=== PATIENT | female | born 1975 | race Caucasian/White ===

== ENCOUNTER 2024-02-08 07:33 | Outpatient (OUT) | payer BC, SELFPAY | END 2024-02-08 07:34 | disposition home or self-care (01) | LOC: SLEEP 07:33 | DX: G47.33 Obstructive sleep apnea (adult) (pediatric) (principal) | CPT/HCPCS: 95806 ==

== ENCOUNTER 2024-08-01 10:31 | Outpatient (OUT) | payer BC, SELFPAY ==
[2024-08-01 10:49] LABS: Basophils Absolute Auto 0.1 10^3/uL (0.0-0.1); Basophils Percent Auto 0.8 % (0.2-2.0); Eosinophils Absolute Auto 0.3 10^3/uL (0.0-0.7); Eosinophils Percent Auto 3.4 % (0.9-7.0); Hematocrit 42.8 % (36.0-48.0); Hemoglobin 14.5 g/dL (12.0-16.0); Immature Granulocytes Abs Auto 0.02 10^3/uL (0.00-0.03); Immature Granulocytes Pct Auto 0.3 % (0.0-0.5); Lymphocytes Percent Auto 37.1 % (20.5-60.0); Mean Corpuscular HGB Conc 33.9 g/dL (29.9-35.2); Mean Corpuscular Hemoglobin 31.7 pg (26.7-34.0); Mean Corpuscular Volume 93.7 fL (81.0-99.0); Mean Platelet Volume 9.5 fL (9.5-13.5); Monocytes Absolute Auto 0.8 10^3/uL (0.3-0.8); Monocytes Percent Auto 10.4 % (1.7-12.0); Neutrophils Absolute Auto 3.8 10^3/uL (1.4-6.5); Platelet Count 257 10^3/uL (150-450); Red Blood Count 4.57 10^6/uL (4.20-5.40); Red Cell Distribution Width 13.6 % (11.0-15.0)
[2024-08-01 11:17] LABS: Estimated Average Glucose 126 mg/dL
[2024-08-01 11:31] LABS: Alanine Aminotransferase 18 U/L (14-59); Albumin Globulin Ratio 1.2; Albumin Level 3.7 g/dL (3.4-5.0); Alkaline Phosphatase 79 U/L (46-116); Anion Gap 10.3; Aspartate Amino Transferase 15 U/L (15-37); BUN Creatinine Ratio 26.8; Bilirubin Total 0.4 mg/dL (0.2-1.0); Calcium 9.2 mg/dL (8.5-10.1); Carbon Dioxide 29.5 mmol/L (21.0-32.0); Chloride 105 mmol/L (98-107); Estimated GFR (African America >60 (>=60 mL/min/1.73m^2); Estimated GFR (Non-African Ame >60 (>=60 mL/min/1.73m^2); Globulin 3.1 g/dL; Glucose 72 mg/dL (74-106); Potassium 3.8 mmol/L (3.5-5.1); Sodium 141 mmol/L (136-145); Total Protein 6.8 g/dL (6.4-8.2)
== END 2024-08-01 10:32 | disposition home or self-care (01) ==
LOC: LAB 10:32
PROVIDERS: Visit Provider Obstetrics & Gynecology
DX: E74.39 Other disorders of intestinal carbohydrate absorption (principal); Z76.89 Persons encountering health services in other specified circumstances
CPT/HCPCS: 36415; 80053; 83036; 84443; 85025

== ENCOUNTER 2024-12-06 20:08 | Outpatient (REF) | payer BC, SELFPAY ==
--- OUTSIDE RECORDS SUMMARY | 2024-12-06 14:30 | XMS_ITS | Encounter Summary ---
Author Organization [facility] Address [address] [facility] [place] [address] Care Team Providers Care Pelt Grader Name Role Phone Chelly Garcia DO Primary Care Provider Unav ailable Reason for Visit * Reason Comments Well Women Visit Encounter Details Date Type Department Care Team (Late st Contact Info) Description 12/06/2024 2:30 PM EDT Office Visit [facility] [place] [facility] [address] [facility] [place] [phone] Desmond Galan DO [address] [facility] [place] [address] Well woman exam with routine gynecological exam; Encounter for screening mammogram for malignant neoplasm of breast; Encounter for weight management Social History Tobacco Use Types Packs/Day Years Used Date Smoking Tobacco: Never Assessed Comments Unknown Sex and Gender Information Value Date Recorded Sex Assigned at Not on file Legal Sex Female 6:59 PM EDT Gender Identity Not on file Sexual Orientation Not on file documented as of this encounter Progress Notes * Adina Cali LPN - 12/06/2024 2:30 PM EDT Reason for Appointment: Patient ID: Kerry Shepard is a 49 y.o. female who presents for Well Women Visit Patient presents today for Annual Exam. MEDICATIONS Current Outpatient Medications Medication Instructions famotidine (PEPCID) 40 mg, Oral, Daily losartan-hydroCHLOROthiazide (Hyzaar) 50-12.5 MG tablet 1 tablet, Oral, Daily omeprazole (PRILOSEC) 40 mg, Oral, Daily before breakfast ALLERGIES No Known Allergies PROBLEMS Active Ambulatory Problems Diagnosis Date Noted No Active Ambulatory Problems Resolved Ambulatory Problems Diagnosis Date Noted No Resolved Ambulatory Problems No Additional Past Medical History HISTORY PAST MEDICAL HISTORY SOCIAL HISTORY No past medical history on file. Social History Tobacco Use Smoking status: Not on file Smokeless tobacco: Not on file Substance Use Topics Alcohol use: Not on file Drug use: Not on file FAMILY HISTORY No family history on file. SURGICAL HISTORY No past surgical history on file. REVIEW OF SYSTEMS Review of Systems: Review of Systems Constitutional: Negative. HENT: Negative. Eyes: Negative. Respiratory: Negative. Cardiovascular: Negative. Gastrointestinal: Negative. Genitourinary: Negative. Musculoskeletal: Negative. Skin: Negative. Neurological: Negative. All other systems reviewed and are negative. Hematological: Negative. Endocrine: Negative. Allergic/Immunologic: Negative. OBJECTIVE Objective: Physical Exam Constitutional: Appearance: Normal appearance. She is well-developed. Genitourinary: Vulva normal. Breasts: Breasts are soft. Right: Normal. Left: Normal. Cardiovascular: Rate and Rhythm: Normal rate and regular rhythm. Pulmonary: Effort: Pulmonary effort is normal. Breath sounds: Normal breath sounds. Abdominal: General: Bowel sounds are normal. There is no distension. Palpations: Abdomen is soft. Tenderness: There is no abdominal tenderness. There is no guarding or rebound. Musculoskeletal: General: No swelling. Normal range of motion. Right lower leg: No edema. Left lower leg: No edema. Neurological: Mental Status: She is alert and oriented to person, place, and time. Skin: General: Skin is warm and dry. Psychiatric: Mood and Affect: Mood normal. Behavior: Behavior normal. Vitals and nursing note reviewed. Exam conducted with a light cleaner present. Vitals: Estimated body mass index is 40.69 kg/m?? as calculated from the following: Height as of 10/29/21: 5' 4.5 . Weight as of 08/01/24: 240 lb 12.8 oz. BP: No LMP recorded. ASSESSMENT & PLAN ICD-10-CM 1. Well woman exam with routine gynecological exam Z01.419 THIN PREP TIS PAP AND HR HPV DNA 2. Encounter for screening mammogram for malignant neoplasm of breast Z12.31 CANCELED: Bilateral screening mammogram CANCELED: Bilateral screening mammogram No orders of the defined types were placed in this encounter. Annual Wellness Exam: Patient presents today for routine annual exam. Patient states she has no current complaints. Patients vitals were reviewed and within normal limits. Growth and development is noted to be appropriate for age. Menstrual history is noted to be regular with no concerns reported. No mental health concerns was expressed. Pap Smear: Speculum was inserted into the vagina and pap was obtained without difficulty. HPV testing was performed per age guideline. Patient was advised that pap results could take anywhere from 7 to 10 days to receive and our office will reach out to the patient with those once we have them. Patient can also view results via [employer]. I reinforced importance of condom use for STI prevention. Patient declined cultures to be performed with today's visit. Breast Exam: Upon examination, clinical breast exam was noted to be normal and screening mammogram was ordered and given to patient to have obtained. Patient was counseled on breast self-awareness, including the importance of knowing what is normal for her own breasts and promptly reporting any changes such as new lumps, skin dimpling, nipple discharge, or pain. Screening mammogram was recommended annually. Discussed signs and symptoms of breast cancer and when to seek medical attention. Answered all patient questions. Patient presents today for initial Adipex prescription. The importance of keeping a food journal, proper nutrition/diet, and exercise regimen while taking Adipex has been discussed. Patient verbalized understanding and signed consents to initiate (Adipex) medication therapy. Patient was given a printed prescription signed by provider to take to their local pharmacy. Follow Up: Patient is to return to the office in 1 month for further evaluation to assess patient progress. Weight and blood pressure will need to be captured in order for patient to receive 2nd prescription. Follow Up: Patient is to return to our office in one year for annual exam unless needed otherwise. Documented by Adina Cali LPN on behalf of: Desmond Galan DO documented in this encounter Plan of Treatment Upcoming Encounters Date Type Department Care Team (Late st Contact Info) Description 01/03/2025 2:30 PM EDT Office Visit [facility] [place] [facility] [address] [place] [address] Courtney Osman PA [address] [place] [address] 12/13/2025 4:00 PM EDT Procedure Visit [facility] [address] [facility] [place] [phone] Desmond Galan DO [address] [place] [address] Scheduled Orders Name Type Priority Associated Diagnoses Orde r Schedule THIN PREP TIS PAP AND HR HPV DNA Pathology and Cytology Routine Well woman exam with routine gynecological exam Ordered: 12/06/2024 documented as of this encounter Visit Diagnoses Diagnosis Well woman exam with routine gynecological exam Routine gynecological examination Encounter for screening mammogram for malignant neoplasm of breast Encounter for weight management documented in this encounter Care Teams Pelt Grader Relationship Specialty Start Date End Date Chelly Garcia DO PCP - General Family Medicine 07/29/22 documented as of this encounter
--- OUTSIDE RECORDS SUMMARY | 2024-12-06 20:11 | XMS_ITS | Encounter Summary ---
Author Organization [facility] Address [address] [facility] [place] [address] Care Team Providers Care Family Life Counselor Name Role Phone Chelly Garcia DO Primary Care Provider Unav ailable Encounter Details Date Type Department Care Team (Late Contact Info) Description 11/28/2024 Orders Only [facility]I ABBOTT [address] [place] [address] [place] [address] Monica Ash LPN [address] [facility] [place], [place] [address] Social History Tobacco Use Types Packs/Day Years Used Date Smoking Tobacco: Never Assessed Comments Unknown Sex and Gender Information Value Date Recorded Sex Assigned at Not on file Legal Sex Female 6:59 PM EDT Gender Identity Not on file Sexual Orientation Not on file documented as of this encounter Plan of Treatment Upcoming Encounters Date Type Department Care Team (Late st Contact Info) Description 01/03/2025 2:30 PM EDT Office Visit [facility] ABBOTT [address] [place] [address] [place] [address] Courtney Osman PA [address] [facility] [address] [place], [place] [address] 12/13/2025 4:00 PM EDT Procedure Visit [facility] ABBOTT [address] [place] [address] [place] [address] Desmond Galan DO [address] [place] [address] Dr Ta [place], [facility]11 documented as of this encounter Procedures Procedure Name Priority Date/Time Associated Diagnosis Comments PAP SMEAR Routine 05/31/2020 12:00 AM EST documented in this encounter Results * Pap Smear (05/31/2020 12:00 AM EST) Swab Cervical swab / Unknown us Adama Nurse [facility] CYTOLOGY ORDERABLES Final Result EXTERNAL LAB documented in this encounter Visit Diagnoses Not on filedocumented in this encounter Care Teams Family Life Counselor Relationship Specialty Start Date End Date Chelly Garcia DO PCP - General Family Medicine 07/29/22 documented as of this encounter
--- OUTSIDE RECORDS SUMMARY | 2024-12-06 20:11 | XMS_ITS | Clinical Summary ---
Author Organization [facility] Address [address] [place] [address], [address] [place] [address] Care Team Providers Care Employee Adviser Name Role Phone JoseChelly Primary Care Provider [phone] Allergies No known active allergies Medications buPROPion (WELLBUTRIN SR) 150 MG extended release tablet take 1 tablet by mouth twice a day 1 2016 Active JULEBER 0.15-30 MG-MCG per tablet TAKE 1 TABLET BY MOUTH ONCE DAILY 0 04/19/2016 Active nicotine (NICODERM CQ) 21 MG/24HR 0 04/01/2016 Active Active Problems No known active problems Family History Medical History Relation Name Comments Cancer Father lung,breast,lym phoma Diabetes Mother Relation Name Status Comments Father Mother Alive Social History Tobacco Use Types Packs/Day Years Used Date Smoking Tobacco: Former Smokeless Tobacco: Never Alcohol Use Standard Drinks/Week Comments No 0 (1 standard drink = 0.6 oz pur e alcohol) Comments No Sex and Gender Information Value Date Recorded Sex Assigned at Not on file Legal Sex Female 2:55 PM EST Gender Identity Not on file Sexual Orientation Not on file Last Filed Vital Signs Vital Sign Reading Time Taken Comments Blood Pressure 126/84 05/06/2016 3:03 PM EST Pulse 91 05/06/2016 3:03 PM EST Temperature 37.2 C (99 F) 05/06/2016 3:03 PM EST Respiratory Rate 20 05/06/2016 3:03 PM EST Oxygen Saturation 96% 05/06/2016 3:03 PM EST Inhaled Oxygen Concentration - - Weight 91.6 kg (202 lb) 05/06/2016 3:03 PM EST Height 162.6 cm (5' 4 ) 05/06/2016 3:03 PM EST Body Mass Index 34.67 05/06/2016 3:03 PM EST Plan of Treatment Not on file Insurance ALL Care Teams Employee Adviser Relationship Specialty Start Date End Date Chelly Garcia DO PCP - General Family Medicine 05/06/16
--- OUTSIDE RECORDS SUMMARY | 2024-12-06 20:11 | XMS_ITS | Encounter Summary ---
Author Organization [facility] Address [address] [facility] [place] [address] Care Team Providers Care Animal Cruelty Investigation Supervisor Name Role Phone Jose Chellyblane Greer DO Primary Care Provider Unav ailable Encounter Details Date Type Department Care Team (Late Contact Info) Description 08/12/2024 Abstract [facility]I ABBOTT [address] [place] [address] [place] [address] Desmond Galan DO [address] [place] [address] Dr Ta [place], [facility]11 Social History Tobacco Use Types Packs/Day Years Used Date Smoking Tobacco: Never Assessed Comments Unknown Sex and Gender Information Value Date Recorded Sex Assigned at Not on file Legal Sex Female 6:59 PM EDT Gender Identity Not on file Sexual Orientation Not on file documented as of this encounter Plan of Treatment Upcoming Encounters Date Type Department Care Team (Late Contact Info) Description 01/03/2025 2:30 PM EDT Office Visit YESI ABBOTT [address] [place], [place] [address] [address] Courtney Osman PA [address] [place], [place] [address] 12/13/2025 4:00 PM EDT Procedure Visit YESI ABBOTT [address] [place], [place] [address] [address] Desmond Galan, [facility] [place], [facility]11 (work) documented as of this encounter Visit Diagnoses Not on filedocumented in this encounter Care Teams Animal Cruelty Investigation Supervisor Relationship Specialty Start Date End Date Chelly Garcia DO PCP - General Family Medicine 07/29/22 documented as of this encounter
--- OUTSIDE RECORDS SUMMARY | 2024-12-06 20:11 | XMS_ITS | Encounter Summary ---
Author Organization [facility] Address [address] [facility] [place] [address] Care Team Providers Care Third Cook Name Role Phone Chelly Garcia DO Primary Care Provider Unav ailable Reason for Visit * Reason Comments Med Refill Encounter Details Date Type Department Care Team (Late Contact Info) Description 05/13/2023 Refill [facility] [address] [place] [phone] Chelly Garcia, DO Encounter for surveillance of contraceptive pills Social History Tobacco Use Types Packs/Day Years Used Date Smoking Tobacco: Never Assessed Comments Unknown Sex and Gender Information Value Date Recorded Sex Assigned at Not on file Legal Sex Female 6:59 PM EDT Gender Identity Not on file Sexual Orientation Not on file documented as of this encounter Miscellaneous Notes * Telephone Encounter - Luis Armstrong MA - 05/13/2023 10:12 AM EST Pt needs apt. Not seen since 03/2022. Lmtcb for apt documented in this encounter Plan of Treatment Upcoming Encounters Date Type Department Care Team (Late Contact Info) Description 01/03/2025 2:30 PM EDT Office Visit [facility]I ABBOTT [address] [facility] [place] [phone] Courtney Osman PA [address] [facility] [place] [address] 12/13/2025 4:00 PM EDT Procedure Visit [facility]I [facility]OOKS[facility] [address] [place] [address] Desmond Galan DO [address] [place] [address] documented as of this encounter Visit Diagnoses Diagnosis Encounter for surveillance of contraceptive pills documented in this encounter Care Teams Third Cook Relationship Specialty Start Date End Date Chelly Garcia DO PCP - General Family Medicine 07/29/22 documented as of this encounter
--- OUTSIDE RECORDS SUMMARY | 2024-12-06 20:11 | XMS_ITS | Clinical Summary ---
Author Organization [facility] Address [address] [email or web address] [place] [address] Care Team Providers Care Planetarium Sky Show Technician Name Role Phone Chelly Garcia DO Primary Care Provider Unav ailable Allergies No known active allergies Medications losartan-hydroC HLOROthiazide (Hyzaar) 50-12.5 MG tablet Take 1 tablet by mouth Daily Active famotidine (Pepcid) 40 MG tablet Take 40 mg by mouth Daily Active omeprazole (PriLOSEC) [address] capsule Take 40 mg by mouth in the morning. Take before meals. Active phentermine (Adipex-P) 37.5 MG tabletIndicatio ns:Encounter for weight management Take 1 tablet (37.5 mg) by mouth in the morning. Take before meals. 30 tablet 5 01/06/20 25 Active semaglutide (Ozempic) 2 MG/1.5ML solution pen-injectorInd ications:Glucos e intolerance,Enc ounter for weight management FIRST MONTH inject 0.25 mg under the skin once weekly; then SECOND MONTH inject 0.5 mg under the skin 1 (one) time per week for 4 doses. 1.5 mL 1 5 12/07/19 25 Discontinued Encounters Date Type Department Care Team Description 12/06/2024 2:30 [place] [phone] Desmond Galan, DO Well woman exam with routine gynecological exam; Encounter for screening mammogram for malignant neoplasm of breast; Encounter for weight management 12/06/2024 [place] [address] Desmond Galan, DO 12/06/2024 Travel 12/06/2024 Bamboo flowsheet [facility] ABBOTT [address] [place] [address] [place] [address] Desmond Galan, DO 11/28/2024 Orders Only [facility] [place] [address] Monica Ash LPN 09/08/2024 Telephone [facility] [address] [place] [address] [place] [address] Samara Nash LPN from Last 3 Months Social History Tobacco Use Types Packs/Day Years Used Date Smoking Tobacco: Never Assessed Comments Unknown Sex and Gender Information Value Date Recorded Sex Assigned at Not on file Legal Sex Female 6:59 PM EDT Gender Identity Not on file Sexual Orientation Not on file Last Filed Vital Signs Vital Sign Reading Time Taken Comments Blood Pressure 118/74 08/01/2024 9:32 AM EDT Pulse - - Temperature - - Respiratory Rate - - Oxygen Saturation - - Inhaled Oxygen Concentration - - Weight 109 kg (240 lb 12.8 oz) 08/01/2024 9:32 A M EDT Height 163.8 cm (5' 4.5 ) 10/29/2021 12:00 PM ED T Body Mass Index 40.69 10/29/2021 12:00 PM EDT Plan of Treatment Upcoming Encounters Date Type Department Care Team (Late st Contact Info) Description 01/03/2025 2:30 PM EDT Office Visit [facility] ABBOTT [address] [place] [address] [place] [address] Courtney Osman PA [address] [facility] [address] [place], [place] [address] 12/13/2025 4:00 PM EDT Procedure Visit [facility] [place] [address] Desmond Galan DO [address] [place] [address] Dr [place] [address] Insurance [facility] Care Teams Planetarium Sky Show Technician Relationship Specialty Start Date End Date Chelly Garcia DO PCP - General Family Medicine 07/29/22
--- OUTSIDE RECORDS SUMMARY | 2024-12-06 20:12 | XMS_ITS | Encounter Summary ---
Author Organization [facility] Address [address] [facility] [place] [address] Care Team Providers Care Sausage Linker Name Role Phone Jose Chellyblane Greer DO Primary Care Provider Unav ailable Encounter Details Date Type Department Care Team (Late Contact Info) Description 12/06/2024 Bamboo flowsheet YESI ABBOTT [address] [place] [address] [place] [address] Desmond Galan DO [address] [place] [address] Dr Ta [place], [facility]11 Social History Tobacco Use Types Packs/Day [...] 2:30 PM EDT Office Visit YESI ABBOTT [address] [place] [address] [place] [address] Courtney Osman PA [address] [place], [place] [address], [place] [address] 12/13/2025 4:00 PM EDT Procedure Visit YESI ABBOTT [address] [place], [place] [address] [address] Desmond Galan DO [address] [place], [facility]11 documented as of this encounter Visit Diagnoses Not on filedocumented in this encounter Care Teams Sausage Linker Relationship Specialty Start Date End Date Chelly Garcia DO PCP - General Family Medicine 07/29/22 documented as of this encounter
--- OUTSIDE RECORDS SUMMARY | 2024-12-06 20:12 | XMS_ITS | Encounter Summary ---
Author Organization [facility] Address [address] [facility] [place] [address] Care Team Providers Care Sanitary Plumber Name Role Phone Chelly Garcia DO Primary Care Provider Unav ailable Encounter Details Date Type Department Care Team (Latest Contact Info) Description 12/06/2024 Travel Social History Tobacco Use Types Packs/Day Years [...] PM EDT Office Visit YESI ABBOTT [address] [place] [phone] Courtney Osman PA [address] [facility] [address] [place], [place] [address] 12/13/2025 4:00 PM EDT Procedure Visit YESI ABBOTT [address] [place] [address] Desmond Galan DO [address] [facility] [address] [place], [facility]11 documented as of this encounter Visit Diagnoses Not on filedocumented in this encounter Care Teams Sanitary Plumber Relationship Specialty Start Date End Date Chelly Garcia DO PCP - General Family Medicine 07/29/22 documented as of this encounter
--- OUTSIDE RECORDS SUMMARY | 2024-12-06 20:12 | XMS_ITS | Encounter Summary ---
Author Organization [facility] Address [address] [facility] [place] [address] Care Team Providers Care Expeller Worker Name Role Phone Jose Chellyblane Greer DO Primary Care Provider Unav ailable Encounter Details Date Type Department Care Team (Late Contact Info) Description 12/06/2024 Abstract YESI ABBOTT [address] [place] [address] [place] [address] Desmond Galan DO [address] [place] [address] Dr Ta [place], [facility]11 Social History Tobacco Use Types Packs/Day Years [...] 2:30 PM EDT Office Visit YESI ABBOTT [address] [place], [place] [address] [address] Courntey Osman PA [address] [place], [place] [address] 12/13/2025 4:00 PM EDT Procedure Visit YESI ABBOTT [address] [place], [place] [address] [address] Desmond Galan, [address] [place], [facility]11 (work) documented as of this encounter Visit Diagnoses Not on filedocumented in this encounter Care Teams Expeller Worker Relationship Specialty Start Date End Date Chelly Garcia DO PCP - General Family Medicine 07/29/22 documented as of this encounter
--- OUTSIDE RECORDS SUMMARY | 2024-12-06 20:16 | XMS_ITS | CCD ---
Author Organization [facility] Care Team Providers Care Interlocking And Signal Mechanic Name Role Phone GUZMANDARRIN Unavailable Unavailable ALLSOP, CHELLY D Unavailable Unavailable Allsop, Chelly Unavailable Unavailable Asbridge, Yasmin Unavailable Unavailable Asbridge, Yasmin Unavailable Unavailable Allsop, Chelly D Unavailable [phone] MD Chelly Garcia Primary Care Provider MD Faisal Barry Attending Provider [phone] Lb, Rashi Unavailable REFERRAL, SELF Admitting Unavailable REFERRAL, SELF Attending Unavailable REFERRAL, SELF Referring Unavailable LB, RASHI Primary Care Unavailable LB, RASHI Consulting Unavailable LB, RASHI Admitting Unavailable LB, RASHI Primary Care Unavailable LB, RASHI Attending Unavailable Lb DO, Rashi N Primary Care Provider [phone] Lb DO, Rashi N Attending Provider Allsop Chelly LOVE Primary Care Provider Unav ailable QUINN GALAN Attending Unavailable Lb DO, Rashi N Primary Care Provider [phone] Lb DO, Rashi N Attending Provider [phone] Lb DO, Rashi N Primary Care Provider [phone] Lb DO, Rashi N Attending Provider [phone] Lb, Rashi N Attending Unavailable Lb, Rashi N Primary Care Unavailable Lb, Rashi N Admitting Unavailable NONE, XXXX Referring Unavailable LB, RASHI Primary Care Unavailable Narciso Coe Attending Unavailable LB, RASHI Attending Unavailable LB, RASHI Primary Care Unavailable LB, RASHI Admitting Unavailable Allergies Allergy Classification Reported Allergen(s) Allergy Type Date of Onset Reaction(s) Facility (1 source) No Known Medication Allergies; Translations: [No Known Medication Allergies] Propensity to adverse reactions to drug (disorder) [facility] Repository (7 sources) Non-steroidal anti-inflammato ry agent Drug allergy [facility] [employer] Other Medications Current Medications Medication Drug Class(es) Dates Sig (Normalized) Sig (Original) famotidine 20 mg oral tablet (20 sources) Histamine-2 Receptor Antagonist Start: 07-01-2023 End: 10-10-2024 take 1 tablet by mouth once daily Famotidine (Pepcid) 20 mg tablet Active 20 MG PO Daily October 10, 2024 4:23pm Complies with drug therapy Start: 10-20-2016 take 1 tablet by steven th twice daily famotidine (PEPCID) 20 MG tablet Indications: Idiopathic urticaria Take 1 (one) tablet (20 mg total) by mouth 2 (two) times a day. 60 tablet 3 10/20/2016 Active take 1 tablet by steven th once daily famotidine (Pepcid) 40 MG tablet Take 40 mg by mouth Daily Active hydroCHLOROthiazide 12.5 mg / lisinopril 20 mg oral tablet (1 source) Thiazide Diuretic, Angiotensin Converting Enzyme Inhibitor take 1 tablet by mouth every twenty-four hours Lisinopril-hydroCHLOROthiazide 20-12.5 MG 1 tablet Orally Once a day Active hydrOXYzine hydrochloride 25 mg oral tablet (2 sources) Antihistamine St ar t: 17 En d: 17 take 1 tablet by mouth at bedtime hydrOXYzine (ATARAX) 25 MG tablet Indications: Idiopathic urticaria Take 1 (one) tablet (25 mg total) by mouth at bedtime. 30 tablet 3 01/05/2017 Active Juleber 0.15 Mg-0.03 Mg Tablet (1 source) St ar t: 17 JULEBER 0.15-0.03 mg per tab let loratadine 10 mg oral tablet (1 source) St ar t: 17 take 1 tablet by mouth once daily loratadine (ALLERGY RELIEF, LORATADINE,) 10 mg tablet Indications: Idiopathic urticaria Take 1 (one) tablet (10 mg total) by mouth daily. 30 tablet 3 10/20/2016 Active phentermine hydrochloride 37.5 mg oral tablet (2 sources) Sympathomimetic Amine Anorectic St ar t: En d: take 1 tablet by mouth before mealtime phentermine (Adipex-P) 37.5 MG tablet Indications: Encounter for weight management Take 1 tablet (37.5 mg) by mouth in the morning. Take before meals. 30 tablet 12/06/2024 01/05/2025 Active Completed/Discontinued Medications Medication Drug Class(es) Dates Sig (Normalized) Sig (Original) Desogestrel-Ethiny l Estradiol (19 sources) Progestin, Estrogen Start: 07-01-2023 End: 07-01-2023 Desogestrel-Ethinyl Estradiol (Enskyce) 0.15-0.03 mg tablet Discontinued 1 TAB PO Daily June 30, 2023 11:00pm July 01, 2023 12:44pm FreeTextSi tablet Orally Once a day; Note: Source Status: Taking; Provider: Lb Trujillo ( ) Start: 07-01-2023 End: 07-01-2023 Desogestrel-Ethinyl Estradio l (Enskyce) 0.15-0.03 mg tablet Discontinued 1 TAB PO Daily July 01, 2023 12:00am July 01, 2023 1:44pm FreeTextSi tablet Orally Once a day; Note: Source Status: Taking; Provider: Lb Trujillo ( ) Start: 02-26-2023 End: 08-01-2024 desogestrel-ethinyl estradio l (Enskyce) 0.15-30 MG-MCG tablet Indications: Encounter for surveillance of contraceptive pills take 1 tablet by mouth once daily 28 tablet 2 02/26/2023 08/01/2024 Discontinued (Other) take 1 tablet by steven th every twenty-four hours Enskyce 0.15-30 MG-MCG 1 tablet Orally Once a day Active fexofenadine hydrochloride 180 mg oral tablet (17 sources) Histamine-1 Receptor Antagonist Start: 07-01-2023 End: 10-10-2024 take 1 tablet by mouth once daily Fexofenadine 180 mg tablet Discontinued 180 MG PO Daily September 17, 2023 3:26pm October 10, 2024 3:58pm hydroCHLOROthiazide 12.5 mg / losartan potassium 50 mg oral tablet (20 sources) Thiazide Diuretic, Angiotensin 2 Receptor Nerissa Start: 07-01-2023 End: 08-04-2024 take 1 tablet by mouth once daily Losartan-Hydroch lorothiazide 50-12.5 mg tablet Discontinued 1 TAB PO Daily September 17, 2023 3:25pm August 04, 2024 2:46pm lidocaine 0.05 mg/mg medicated patch (4 sources) Antiarrhythmic, Amide Local Anesthetic Start: 06-27-2024 End: 10-10-2024 apply 1 dose topically once daily Lidocaine 5 % adhesive patch,medicated Discontinued 1 PATCH TOPICAL Daily June 27, 2024 12:00am October 10, 2024 3:58pm leave on most painful area for up to 12 hrs meloxicam 15 mg oral tablet (11 sources) Nonsteroidal Anti-inflammatory Drug Start: 04-21-2024 End: 08-04-2024 take 1 tablet by mouth once daily Meloxicam 15 mg tablet Discontinued 15 MG PO Daily June 27, 2024 12:00am August 04, 2024 2:41pm methylPREDNISolone acetate 80 mg/ml injectable suspension (7 sources) Corticosteroid Start: 08-25-2022 DEPO-Medrol Aug, 80 mg omeprazole 40 mg delayed release oral capsule (20 sources) Proton Pump Inhibitor Start: 09-17-2023 End: 08-25-2024 take 1 capsule by mouth once daily Omeprazole 40 mg capsule,delayed release(DR/EC) Discontinued 40 MG PO Daily March 01, 2024 4:11pm August 25, 2024 9:51am pantoprazole 20 mg delayed release oral tablet (9 sources) Proton Pump Inhibitor Start: 07-01-2023 End: 07-01-2023 take 1 tablet by mouth twice daily Pantoprazole 20 mg tablet,delayed release (DR/EC) Discontinued 20 MG PO Twice daily July 01, 2023 12:00am July 01, 2023 1:43pm FreeTextSi tablet Orally bid; Note: Source Status: Taking; Provider: GI predniSONE 20 mg oral tablet (6 sources) Start: 04-25-2024 End: 06-03-2024 take 2 tablets by mouth once daily Prednisone 20 mg tablet Discontinued 40 MG PO Daily 12 April 25, 2024 1:00am June 03, 2024 10:01am 0.25 mg, 0.5 mg dose 1.5 ml semaglutide 1.34 mg/ml pen injector (6 sources) Start: 08-26-2024 End: 12-06-2024 semaglutide (Ozempic) 2 MG/1.5ML solution pen-injector Indications: Glucose intolerance , Encounter for weight management FIRST MONTH inject 0.25 mg under the skin once weekly; then SECOND MONTH inject 0.5 mg under the skin 1 (one) time per week for 4 doses. 1.5 mL 1 08/26/2024 12/06/2024 Discontinued Start: 08-01-2024 semaglutide (O zempic) 2 MG/1.5ML solution pen-injector Indications: Glucose intolerance FIRST MONTH inject 0.25 mg under the skin once weekly; then SECOND MONTH inject 0.5 mg under the skin 1 (one) time per week for 4 doses. 1 each 1 08/01/2024 Active sucralfate 1000 mg oral tablet (8 sources) Aluminum Complex Start: 09-15-2023 End: 09-17-2023 take 2 tablets by mouth four times daily Sucralfate (Carafate) 1 gram tablet Discontinued PO September 15, 2023 12:00am September 17, 2023 3:07pm FreeTextSi tablet on an empty stomach Orally qid; Note: Source Status: Taking; Provider: GI Problems Active Problems Problem Classification Problem Date Documented Da te Episodic/Chronic Administrative/social admission (4 sources) Patient encounter status; Translations: [Persons encountering health services in other specified circumstances] 08-01-2024 Episodic Diabetes mellitus without complication (6 sources) Prediabetes; Translations: [Prediabetes] 08-04-2024 Episodic Esophageal disorders (9 sources) Gastroesophageal reflux disease; Translations: [Gastro-esophageal reflux disease without esophagitis] 09-17-2023 Chronic Essential hypertension (16 sources) Essential hypertension; Translations: [Essential (primary) hypertension] Chronic Osteoarthritis (13 sources) Osteoarthritis of knee; Translations: [Osteoarthritis of knee, unspecified] 07-01-2023 Chronic Other and unspecified benign neoplasm (4 sources) History of polyp of colon; Translations: [Personal history of colonic polyps] Episodic Other and unspecified benign neoplasm (1 source) Personal history of colonic polyps Episodic Other connective tissue disease (1 source) Anterior tibial syndrome, unspecified leg; Translations: [Tibialis tendinitis] 07-01-2023 Episodic Other connective tissue disease (1 source) Anterior tibial syndrome, left leg; Translations: [Tibialis tendinitis] 07-01-2023 Episodic Other connective tissue disease (2 sources) Calcaneal spur, unspecified foot; Translations: [Calcaneal spur] 06-27-2024 Episodic Other nervous system disorders (3 sources) Paresthesia of hand ; Translations: [Paresthesia of skin] Episodic Other nervous system disorders (1 source) Paresthesia of skin Episodic Other non-traumatic joint disorders (1 source) Pain in unspecified knee; Translations: [Knee pain] Episodic Other non-traumatic joint disorders (1 source) Pain in left knee Episodic Other nutritional; endocrine; and metabolic disorders (4 sources) Disorder of carbohydrate metabolism; Translations: [Other disorders of intestinal carbohydrate absorption] 08-01-2024 Chronic Other nutritional; endocrine; and metabolic disorders (1 source) Liposynovitis prepatellaris; Translations: [Other specified metabolic disorders] 10-10-2024 Chronic Other screening for suspected conditions (not mental disorders or infectious disease) (5 sources) Encounter for screening for cardiovascular disorders; Translations: [Encounter for screening for malignant neoplasm of colon] Episodic Sprains and strains (1 source) Strain of muscle(s) and tendon(s) of peroneal muscle group at lower leg level, left leg, initial encounter Episodic Past or Other Problems Problem Classification Problem Date Documented Da te Episodic/Chronic Allergic reactions (3 sources) Idiopathic urticaria; Translations: [Idiopathic urticaria] Onset: 06-16-2016 06-16-2016 Episodic Other connective tissue disease (14 sources) Other specified disorders of tendon, right ankle and foot; Translations: [Achilles bursitis or tendinitis] Onset: 06-30-2024 04-21-2024 Episodic Unclassified (1 source) Well adult; Translations: [Full-term infant] 09-17-2023 Results Test Name Value Interpretation Reference Range Facility Sleep Office/Clinic Noteon 0 11-23-2024 Sleep Office/Clinic Note Sleep Office/Clinic Note History of Present Illness Here to establish care for underlying obstructive sleep apnea. The patient reports that she was diagnosed with obstructive sleep apnea about a year ago at [facility]. Apparently she was started on CPAP after that and a pressure of 17 cm via a hybrid fullface mask. She reports that she feels that the pressure goes up too high where she has significant GI symptoms with bloating and gas in the morning. Her pressures were decreased to 13 cm, however she continued to have similar issues. She reports that her sleep continues to be disrupted because of the high pressures and the intolerance to her CPAP with GI side effects. Her weight has increased about 10 pounds since she has her sleep study. No reported snoring while she is on the machine by her daughter, however she does sleep alone normally. Review of Systems Constitutional: no fever, no chills, no sweats, no weakness Skin: no Jaundice, no rash, no lesions, no petechiae ENT: no ear pain, no sore throat, no congestion, no hoarseness Respiratory: Denies shortness of breath, cough or wheezing Cardiovascular: no chest pain, no palpitations, no edema Gastrointestinal: no nausea, no vomiting, no diarrhea, no GI bleeding Genitourinary: no dysuria, no hematuria, no discharge, no pain Musculoskeletal: no back pain, no trauma Neurologic: no headache, no dizziness, no numbness, no weakness Psychiatric: no irritability, no mood swings/depression. Heme/Lymph: no bleeding tendency, no bruising tendency, no petechiae, no swollen nodes Allergy/Immunologic: no seasonal allergies, no food allergies, no recurrent infections, no impaired immunity Additional ROS info: Except as noted in the above Review of Systems and in the History of Present Illness all other systems have been reviewed and are negative or noncontributory. Physical Exam Vitals & Measurements HR: 91(Peripheral) BP: 130/82 SpO2: 97% HT: 162 cm WT: 112 kg BMI: 42.68 General: Awake, alert, in no acute distress Skin: warm, dry Head: no trauma, normocephalic. Prolonged soft palate Neck: Trachea midline, no adenopathy, no tenderness Eye: normal conjunctiva, sclera clear ENMT: TM's clear, oral mucosa moist, no pharyngeal erythema or exudate Cardiovascular: regular rate and rhythm, normal peripheral perfusion Respiratory: Good breath sounds to both lung garcia without wheezing or crackles. Gastrointestinal: soft, non distended, no tenderness, no guarding. Back: No tenderness, Normal ROM, Normal alignment. Extremities: no deformity, no trauma Neurological: oriented x 4, LOC appropriate for age, CN II-XII intact, motor strength equal & normal bilaterally, sensation equal & normal bilaterally, speech normal Psychiatric: cooperative, affect appropriate for age, normal judgement, normal psychiatric thoughts. Assessment/Plan 1. YEFRI (obstructive sleep apnea) (G47.33: Obstructive sleep apnea (adult) (pediatric)) With obstructive sleep apnea diagnosed at [facility] approximately a year ago. They have requested her sleep study to review. I have reviewed the patient's CPAP download data from October 23, 2024 till November 21, 2024 with the patient today. She has fair compliance with her CPAP at a pressure of 13 cm, however her AHI is somewhat elevated at 7.4/hour and mostly obstructive in nature. She has significant GI side effects from this higher pressure despite suboptimal therapy. Given the above I will decrease her pressure to 11 cm to see if this is better tolerated and reevaluate treatment plan in the next 6 to 8 weeks. If she continues to feel that her pressure is high we will consider decreasing it further to 9 cm. Will also consider switching to an auto titrating mode on her next visit as well. Follow-up With When Contact Information Carolin ESPINAL, Narciso Soto, PUL, JARED Within [address] [place] [address] [facility] [place] [address]- Additional Instructions: Problem List/Past Medical History Ongoing BMI 35.0-35.9,adult Chronic GERD Encounter for screening colonoscopy Obesity due to excess calories YEFRI (obstructive sleep apnea) Smoker Historical No qualifying data Procedure/Surgical History Esophagogastroduodenoscopy (05/21/2023), Colonoscopy (02/06/2023), Esophagogastroduodenoscopy (02/06/2023), Tubal ligation. Medications Apri oral tablet, 1 tab(s), Oral, As Directed Benadryl 25 mg Cap, 50 mg= 2 cap(s), Oral, TID Carafate 1 gram Tab, 2 gm= 2 tab(s), Oral, QID famotidine 20 mg Tab fexofenadine 180 mg Tab hydrochlorothiazide-losarta n 12.5 mg-50 mg Tab [place] 325 mg-5 mg oral tablet, 1 tab(s), Oral, q4hr, PRN Pantoprazole [address] Tab, 20 mg= 1 tab(s), Oral, BID tizanidine 4 mg oral capsule, 4 mg= 1 cap(s), Oral, TID Vistaril 25 mg Cap, 1-2 cap(s), Oral, QID, PRN Vistaril 25 mg Tab, 25 mg, Oral, QID Allergies No Known Allergies Social History Alcohol - Denies Alcohol Use, 05/29/2016 Never. (more content not included)... Normal [facility] Comment on above: Result Comment: Elec tronically Signed By: Carolin ESPINAL, Narciso Soto\.br\Date and Time Signed: 11/23/24 10:44 EDT ALL CBC WITH AUTO DIFFon BASOPHILS ABSOLUTE AUTO 0.1 [facility] Basophils/100 WBC (Bld) 0.8 % 0.2 - 2.0 % [facility] Eosinophils/100 WBC (Bld) 3.4 % 0.9 - 7.0 % [facility] Erythrocyte distribution width (RBC) [Ratio] 13.6 % 11.0 - 15.0 % [facility] Hematocrit (Bld) [Volume fraction] 42.8 % 36.0 - 48.0 % [facility] Hemoglobin (Bld) [Mass/Vol] 14.5 g/dL 12.0 - 16.0 g/dL [facility] IMMATURE GRANULOCYTES ABS AUTO 0.02 [facility] Immature granulocytes/100 WBC (Bld) 0.3 % 0.0 - 0.5 % [facility] LYMPHOCYTES ABSOLUTE AUTO 3 [facility] Lymphocytes/100 WBC (Bld) 37.1 % 20.5 - 60.0 % [facility] MCH (RBC) [Entitic mass] 31.7 pg 26.7 - 34.0 pg [facility] MCHC (RBC) [Mass/Vol] 33.9 g/dL 29.9 - 35.2 g/dL [facility] MCV (RBC) [Entitic vol] 93.7 fL 81.0 - 99.0 fL [facility] MONOCYTES ABSOLUTE AUTO 0.8 [facility] Monocytes/100 WBC (Bld) 10.4 % 1.7 - 12.0 % [facility] NEUTROPHILS ABSOLUTE AUTO 3.8 [facility] Neutrophils/100 WBC (Bld) 48 % 43.0 - 75.0 % [facility] Platelet mean volume (Bld) [Entitic vol] 9.5 fL 9.5 - 13.5 fL [facility] EO # 0.3 [facility] PLT 257 [facility] RBC 4.57 [facility] WBC 8 [facility] Basophils Auto (Bld) [#/Vol] on 05-23-2024 Basophils (Bld) [#/Vol] Automated basophil count 0.0-2.0 [facility] Basophils/100 WBC Auto (Bld) on 05-23-2024 Basophils/100 WBC (Bld) Automated basophil % 0.0-0.[address] [facility] CBC w/ Auto Diffon Basophils/100 WBC (Bld) 0.8 % Normal 0.0-2.0 [facility] Comment on above: Performed By: #### 2 [id number] #### [facility] [address] [place] [address] Basophils/Leukocytes Auto (Bld) [Pure # fraction] 0.1 E9/L Normal 0.0-0.2 [facility] Comment on above: Performed By: #### 2 [id number] #### [facility] [address] [place] [address] Eosinophils (Bld) [#/Vol] 0.1 E9/L Normal 0.0-0.5 [facility] Comment on above: Performed By: #### 2 [id number] #### [facility] [address] [place] [address] Eosinophils/100 WBC (Bld) 2.3 % Normal 0.0-8.0 [facility] Comment on above: Performed By: #### 2 [id number] #### [facility] [address] [place] [address] Erythrocyte distribution width (RBC) [Ratio] 13.2 % Normal 10.9-14.2 [facility] Comment on above: Performed By: #### 2 [id number] #### [facility] [address] [place] [address] Hematocrit (Bld) [Volume fraction] 43.4 % Normal 34.0-46.0 [facility] Comment on above: Performed By: #### 2 [id number] #### [facility] [address] [place] [address] Hemoglobin (Bld) [Mass/Vol] 15.1 g/dL Normal 12.0-16.0 [facility] Comment on above: Performed By: #### 2 [id number] #### [facility] [address] [place] [address] Lymphocytes (Bld) [#/Vol] 2.6 E9/L Normal 1.0-4.0 [facility] Comment on above: Performed By: #### 2 [id number] #### [facility] [address] [place] [address] Lymphocytes/100 WBC (Bld) 42.6 % Normal 14.0-50.0 [facility] Comment on above: Performed By: #### 2 [id number] #### [facility] [address] [place] [address] MCH (RBC) [Entitic mass] 32.2 pg Normal 27.0-34.0 [facility] Comment on above: Performed By: #### 2 [id number] #### [facility] [address] [place] [address] MCHC (RBC) [Mass/Vol] 34.7 g/dL Normal 31.4-36.0 [facility] Comment on above: Performed By: #### 2 [id number] #### [facility] [address] [place] [address] MCV (RBC) [Entitic vol] 92.7 fL Normal 80.0-100.0 [facility] Comment on above: Performed By: #### 2 [id number] #### [facility] [address] [place] [address] Monocytes (Bld) [#/Vol] 0.5 E9/L Normal 0.2-1.0 [facility] Comment on above: Performed By: #### 2 [id number] #### [facility] [address] [place] [address] Neutrophils (Bld) [#/Vol] 2.8 E9/L Normal 2.0-7.5 [facility] Comment on above: Performed By: #### 2 [id number] #### [facility] [address] [place] [address] Neutrophils/100 WBC (Bld) 45.7 % Normal 36.0-75.0 [facility] Comment on above: Performed By: #### 2 [id number] #### [facility] [address] [place] [address] Platelet 302.0 E9/L Normal 150.0-500. 0 [facility] Comment on above: Performed By: #### 2 [id number] #### [facility] [address] [place] [address] Platelet mean volume (Bld) [Entitic vol] 7.6 fL Normal 6.4-10.8 [facility] Comment on above: Performed By: #### 2 [id number] #### [facility] [address] [place] [address] RBC (Bld) [#/Vol] 4.7 E12/L Normal 4.3-5.9 [facility] Comment on above: Performed By: #### 2 [id number] #### [facility] [address] [place] [address] WBC corrected for nucl RBC Auto (Bld) [#/Vol] 6.2 E9/L Normal 4.0-11.0 [facility] Comment on above: Performed By: #### 2 [id number] #### [facility] [address] [place] [address] CMPon 05-23-2024 Albumin/Globulin (S) [Mass conc ratio] 1.6 Normal 1.1-2.2 [facility] Comment on above: Performed By: #### 2 [id number] #### [facility] [address] [place] [address] ALP [Catalytic activity/Vol] 60 Int._Unit/L Normal 21-98 [facility] Comment on above: Performed By: #### 2 [id number] #### [facility] [address] [place] [address] ALT No additional P-5'-P [Catalytic activity/Vol] 11 Int._Unit/L Normal 6-46 [facility] Comment on above: Performed By: #### 2 [id number] #### [facility] [address] [place] [address] Anion gap [Moles/Vol] 10 mmol/L Normal 6-16 [facility] Comment on above: Performed By: #### 2 [id number] #### [facility] [address] [place] [address] AST [Catalytic activity/Vol] 13 Int._Unit/L Normal 5-43 [facility] Comment on above: Performed By: #### 2 [id number] #### [facility] [address] [place] [address] Globulin (S) [Mass/Vol] 2.6 g/dL Normal 1.4-4.0 [facility] Comment on above: Performed By: #### 2 [id number] #### [facility] [address] [place] [address] Urea nitrogen/Creatinine [Mass ratio] 22 No Units High 10-20 [facility] Comment on above: Performed By: #### 2 [id number] #### [facility] [address] [place] [address] Albumin [Mass/Vol] 4.1 g/dL 3.3-5.[address] [facility] Comment on above: Performed By: #### 2 [id number] #### [facility] [address] [place] [address] Bilirubin [Mass/Vol] 0.8 mg/dL 0.0-1.1 [facility] Comment on above: Performed By: #### 2 [id number] #### [facility] [address] [place] [address] Calcium [Mass/Vol] 9.3 mg/dL 8.9-11.[address] [facility] Comment on above: Performed By: #### 2 [id number] #### [facility] [address] [place] [address] Chloride [Moles/Vol] 103 mmol/L 101-111 [facility] Comment on above: Performed By: #### 2 [id number] #### [facility] [address] [place] [address] CO2 [Moles/Vol] 31 mmol/L 21-[address] [facility] Comment on above: Performed By: #### 2 [id number] #### [facility] [address] [place] [address] Creatinine [Mass/Vol] 0.8 mg/dL 0.5-1.3 [facility] Comment on above: Performed By: #### 2 [id number] #### [facility] [address] [place] [address] Glucose [Mass/Vol] 107 mg/dL 55-[address] [facility] Comment on above: Performed By: #### 2 [id number] #### [facility] [address] [place] [address] Potassium [Moles/Vol] 3.8 mmol/L 3.5-5.3 [facility] Comment on above: Performed By: #### 2 [id number] #### [facility] [address] [place] [address] Protein [Mass/Vol] 6.7 g/dL 6.0-7.[address] [facility] Comment on above: Performed By: #### 2 [id number] #### [facility] Laboratory [address] [place] [address] Sodium [Moles/Vol] 140 mmol/L 135-[address] [facility] Comment on above: Performed By: #### 2 [id number] #### [facility] [address] [place] [address] Urea nitrogen [Mass/Vol] 18 mg/dL 08-[address] [facility] Comment on above: Performed By: #### 2 [id number] #### [facility] [address] [place] [address] Cholesterol in VLDL Calc [Ma ss/Vol]on 05-23-2024 Cholesterol in VLDL [Mass/Vol] Cholesterol in VLDL [Mass/volume] in Serum or Plasma by calculation 7-[address] [facility] Eosinophils/100 WBC Manual c nt (Bld)on 05-23-2024 Eosinophils/100 WBC (Bld) Eosinophils/100 leukocytes in Blood by Manual count 0.0-8.[address] [facility] Erythrocyte distribution wid th Auto (RBC) [Ratio]on 05-23-2024 Erythrocyte distribution width (RBC) [Ratio] Erythrocyte distribution width [Ratio] by Automated count 10.9-14.[address] [facility] Estimated glomerular filtrat ion rate (GFR) non- Americanon 05-23-2024 GFR/1.73 sq M.predicted among non-blacks MDRD (S/P/Bld) [Vol rate/Area] Estimated glomerular filtration rate (GFR) non- >=[address] [facility] Globulin Calc (S) [Mass/Vol] on 05-23-2024 Globulin (S) [Mass/Vol] Serum globulin measurement by calculation (mass/volume) 1.4-4.[address] [facility] Hematocrit Auto (Bld) [Volum e fraction]on 05-23-2024 Hematocrit (Bld) [Volume fraction] Hematocrit [Volume Fraction] of Blood by Automated count 34.0-46.[address] [facility] Hemoglobin [Mass/volume] in Bloodon 05-23-2024 Hemoglobin (Bld) [Mass/Vol] Hemoglobin [Mass/volume] in Blood 12.0-16.[address] [facility] Laboratory - Hematology and Cell countson 05-23-2024 Neutrophils/100 WBC (Bld) 45.7 % 36.0-75.[address] [facility] Leukocytes [#/volume] correc barbara for nucleated erythrocytes in Blood by Automated counon 05-23-2024 WBC corrected for nucl RBC Auto (Bld) [#/Vol] Leukocytes [#/volume] corrected for nucleated erythrocytes in Blood by Automated coun 4.0-11.[address] [facility] Lipid Panelon 05-23-2024 Cholesterol in VLDL [Mass/Vol] 28 mg/dL Normal 7-40 [facility] Comment on above: Performed By: #### 2 [id number] #### [facility] [address] [place] [address] Cholesterol [Mass/Vol] 218 mg/dL High 120-200 [facility] Comment on above: Performed By: #### 2 [id number] #### [facility] [address] [place] [address] Cholesterol in HDL [Mass/Vol] 50 mg/dL [facility] Comment on above: Result Comment: '>= 60 LOW RISK' '<= 40 HIGH RISK' Performed By: #### 2 [id number] #### [facility] [address] [place] [address] Cholesterol in LDL [Mass/Vol] 155 mg/dL High <=[address] [facility] Comment on above: Performed By: #### 2 [id number] #### [facility] [address] [place] [address] Triglyceride [Mass/Vol] 142 mg/dL <=[address] [facility] Comment on above: Performed By: #### 2 [id number] #### [facility] [address] [place] [address] Lymphocytes Auto (Bld) [#/Vo l]on 05-23-2024 Lymphocytes (Bld) [#/Vol] Lymphocytes [#/volume] in Blood by Automated count 14.0-50.[address] [facility] MCH Auto (RBC) [Entitic mass ]on 05-23-2024 MCH (RBC) [Entitic mass] MCH [Entitic mass] by Automated count 27.0-34.[address] [facility] MCHC Auto (RBC) [Mass/Vol]on 05-23-2024 MCHC (RBC) [Mass/Vol] MCHC [Mass/volume] by Automated count 31.4-36.[address] [facility] MCV Auto (RBC) [Entitic vol] on 05-23-2024 MCV (RBC) [Entitic vol] MCV [Entitic volume] by Automated count 80.0-100.[address] [facility] Monocytes Auto (Bld) [#/Vol] on 05-23-2024 Monocytes (Bld) [#/Vol] Automated blood monocyte count 4.0-14.[address] [facility] Neutrophils Auto (Bld) [#/Vo l]on 05-23-2024 Neutrophils (Bld) [#/Vol] Neutrophils [#/volume] in Blood by Automated count 2.0-7.[address] [facility] No Panel Informationon 05-23 Alanine Aminotransferase (ALT/SGPT) 11 Int._Unit/L 6-[address] [facility] Alkaline Phosphatase 60 Int._Unit/L 21-[address] [facility] Aspartate Amino Transf (AST/SGOT) 13 Int._Unit/L 5-[address] [facility] BUN/Creatinine Ratio 22 No Units High 10-20 [facility] Eosinophils # (Auto) 0.1 E9/L 0.0-0.5 [facility] Lymphocytes # (Manual) 2.6 E9/L 1.0-4.0 [facility] Platelet mean volume Auto (B ld) [Entitic vol]on 05-23-2024 Platelet mean volume (Bld) [Entitic vol] Platelet mean volume [Entitic volume] in Blood by Automated count 6.4-10.[address] [facility] Platelets Auto (Bld) [#/Vol] on 05-23-2024 Platelets (Bld) [#/Vol] Platelets [#/volume] in Blood by Automated count 150.0-500. [address] [facility] RBC Auto (Bld) [#/Vol]on RBC (Bld) [#/Vol] Erythrocytes [#/volu me] in Blood by Automated count 4.3-5.[address] [facility] Serum or plasma albumin/glob ulin mass ratioon 05-23-2024 Albumin/Globulin [Mass ratio] Serum or plasma albumin/globulin mass ratio 1.1-2.[address] [facility] Serum or plasma anion gap de terminationon 05-23-2024 Anion gap [Moles/Vol] Serum or plasma an ion gap determination 6-[address] [facility] eGFRon 05-23-2024 eGFR 90 mL/min/1.73 m2 Normal >=59 [facility] Comment on above: Performed By: #### 1 [id number] #### [facility] [address] [place] [address] MA Mamm Screen w/CAD if perf and 3D Bilon 05-12-2024 MA Mamm Screen w/CAD if perf and 3D Francois Exam Date/Time: 05/11/2024 15:13 EST Reason for Exam: Z12.31 Report IMPRESSION: BIRADS 2 BENIGN FINDINGS, NORMAL INTERVAL FOLLOW-UP Follow-up: 12 MONTH RECALL Dense Breast: Yes Category C - The breasts are heterogeneously dense, which may obscure small masses. EXAM: MA Mamm Screen w/CAD if perf and 3D Francois DATE: 05/11/2024 2:54 PM CLINICAL HISTORY: Z12.31. COMPARISONS: December 31, 2016 through February 04, 2023. TECHNIQUE: Routine full-field digital mammograms and 3D breast tomosynthesis of both breasts were obtained. FINDINGS: Both breasts remain heterogeneously dense with stable asymmetry. There are no developing masses, suspicious microcalcifications, or areas of architectural distortion identified on the current study. No significant changes are identified from the prior studies, given differences in technique and positioning. CAD analysis was performed and used in the interpretation. Board Certified Radiologists. Accredited by the ACR and FDA. MAMMOGRAPHY IS VERY IMPORTANT TO YOUR HEALTH. THE CURRENT [employer] AND [employer] GUIDELINES RECOMMENDS ANNUAL MAMMOGRAPHY BEGINNING AT AGE 40. THIS FACILITY UTILIZES A REMINDER SYSTEM TO ENSURE ALL PATIENTS RECEIVE REMINDER NOTIFICATIONS AT THE APPROPRIATE TIME BASED ON THE RECOMMENDATIONS OF THIS EXAM. Report Ordering Provider: REFERRAL, SELF FINAL REPORT Dictated: 05/12/2024 2:51 pm Baylee aMrtínez Signed (Electronic Signature): 05/12/2024 2:51 pm Signed by: Baylee Martínez Transcribed by: MARYCRUZ Technologist: KIRSTIN Assessment: BI-RADS Category 2-Benign finding Recommendation: Normal interval follow-up Normal [facility] H&P Updateon 06-12-2023 H&P Update H&P Reviewed. Patien t seen and examined, appropriate for planned surgery Normal [facility] IntraOperative Documentson 0 05-27-2023 IntraOperative Documents [id number] Normal [facility] Activated partial thrombopla stin time (aPTT) in platelet poor plasma by coagulation aOrdered By: Rashi Barry on 01-29-2022 aPTT Coag (PPP) [Time] 30.4 s 25.1-36.5 [facility] Automated erythrocytes count in urine sediment (number/area)Ordered By: Rashi Barry on 01-29-2022 RBC Auto (Urine sed) [#/Area] None seen [HPF] 0-[address] [facility] Automated leukocytes count i n urine sediment (number/area)Ordered By: Rashi Barry on 01-29-2022 WBC Auto (Urine sed) [#/Area] 3-4 [HPF] 0-[address] [facility] Automated urine sediment tracey cium oxalate crystal count by microscopy (number/high powOrdered By: Rashi Barry on 01-29-2022 Calcium oxalate crystals LM.HPF (Urine sed) [#/Area] 1+ [HPF] [facility] Basophils Auto (Bld) [#/Vol] Ordered By: Rashi Barry on 01-29-2022 Basophils (Bld) [#/Vol] 0.1 10*3/uL 0.0-0.[address] [facility] Basophils/100 WBC Auto (Bld) Ordered By: Rashi Barry on 01-29-2022 Basophils/100 WBC (Bld) 0.9 % . [facility] Bilirubin Test strip Ql (U)O rdered By: Rashi Barry on 01-29-2022 Bilirubin Ql (U) 1+ Negative [facility] Body fluid albumin measureme nt (mass/volume)Ordered By: Rashi Barry on 01-29-2022 Albumin (Body fld) [Mass/Vol] 3.9 g/dL 3.2-5.[address] [facility] C reactive protein [Mass/vol ume] in Serum or PlasmaOrdered By: Rashi Barry on 01-29-2022 CRP [Mass/Vol] 0.7 mg/dL 0.0-1.[address] [facility] Color Auto (U)Ordered By: Chidi vincent Jhonny on 01-29-2022 Color (U) Dark yellow Yellow [facility] Creatine kinase [Enzymatic a ctivity/volume] in Serum or PlasmaOrdered By: Rashi Barry on 01-29-2022 CK [Catalytic activity/Vol] 110 U/L 22-[address] [facility] Creatinine and Glomerular fi ltration rate.predicted panel (S/P/Bld)Ordered By: Rashi Barry on 01-29-2022 Creatinine [Mass/Vol] 0.83 mg/dL 0.44-1.03 [facility] Eosinophils Auto (Bld) [#/Vo l]Ordered By: Rashi Barry on 01-29-2022 Eosinophils (Bld) [#/Vol] 0.3 10*3/uL 0.0-0.[address] [facility] Eosinophils/100 WBC Auto (Bl d)Ordered By: Rashi Barry on 01-29-2022 Eosinophils/100 WBC (Bld) 4.0 % . [facility] Erythrocyte distribution wid th Auto (RBC) [Ratio]Ordered By: Rashi Barry on 01-29-2022 Erythrocyte distribution width (RBC) [Ratio] 13.3 % 11.9-15.[address] [facility] Erythrocyte sedimentation ra te by Photometric methodOrdered By: Rashi Barry on 01-29-2022 ESR Photometric method (Bld) [Velocity] 13 mm/hr 0-[address] [facility] Estimated glomerular filtrat ion rate (GFR) non- AmericanOrdered By: Rashi Barry on 01-29-2022 GFR/1.73 sq M.predicted among non-blacks MDRD (S/P/Bld) [Vol rate/Area] > 60 mL/Min [facility] Globulin Calc (S) [Mass/Vol] Ordered By: Rashi Barry on 01-29-2022 Globulin (S) [Mass/Vol] 2.4 g/dL [facility] Hematocrit Auto (Bld) [Volum e fraction]Ordered By: Rashi Barry on 01-29-2022 Hematocrit (Bld) [Volume fraction] 45.4 % 34.0-46.[address] [facility] Hemoglobin [Mass/volume] in BloodOrdered By: Rashi Barry on 01-29-2022 Hemoglobin (Bld) [Mass/Vol] 15.2 g/dL 11.8-15.[address] [facility] Ketones Auto test strip (U) [Mass/Vol]Ordered By: Rashi Barry on 01-29-2022 Ketones (U) [Mass/Vol] Trace Negative [facility] Laboratory - CoagulationOrde red By: Rashi Barry on 01-29-2022 PT Coag (PPP) [Time] 11.2 s 9.0-12.9 [facility] - Hematology and Cell countsOrdered By: Rashi Barry on 01-29-2022 Nucleated RBC/100 WBC (Bld) [Ratio] 0.0 % 0-0.[address] [facility] - UrinalysisOrder ed By: Rashi Barry on 01-29-2022 Hyaline casts LM Ql (Urine sed) 0-8 [LPF] 0-[address] [facility] Leukocytes [#/volume] in Blo od by Automated countOrdered By: Rashi Barry on 01-29-2022 WBC (Bld) [#/Vol] 6.5 10*3/uL 4.5-11.[address] [facility] Lymphocytes Auto (Bld) [#/Vo l]Ordered By: Rashi Barry on 01-29-2022 Lymphocytes (Bld) [#/Vol] 1.7 10*3/uL 1.00-4.[address] [facility] Lymphocytes/100 WBC Auto (Bl d)Ordered By: Rashi Barry on 01-29-2022 Lymphocytes/100 WBC (Bld) 26.9 % . [facility] MCH Auto (RBC) [Entitic mass ]Ordered By: Rashi Barry on 01-29-2022 MCH (RBC) [Entitic mass] 31.9 pg 24.7-34.[address] [facility] MCHC Auto (RBC) [Mass/Vol]Or dered By: Rashi Barry on 01-29-2022 MCHC (RBC) [Mass/Vol] 33.5 g/dL 32.0-35.0 [facility] MCV Auto (RBC) [Entitic vol] Ordered By: Rashi Barry on 01-29-2022 MCV (RBC) [Entitic vol] 95.2 fL 80-[address] [facility] Monocytes Auto (Bld) [#/Vol] Ordered By: Rashi Barry on 01-29-2022 Monocytes (Bld) [#/Vol] 0.4 10*3/uL 0.0-0.[address] [facility] Monocytes/100 WBC Auto (Bld) Ordered By: Rashi Barry on 01-29-2022 Monocytes/100 WBC (Bld) 6.7 % . [facility] Neutrophils Auto (Bld) [#/Vo l]Ordered By: Rashi Barry on 01-29-2022 Neutrophils (Bld) [#/Vol] 4.0 10*3/uL 1.8-7.[address] [facility] Neutrophils/100 WBC Auto (Bl d)Ordered By: Rashi Barry on 01-29-2022 Neutrophils/100 WBC (Bld) 61.5 % . [facility] Nitrite Test strip Ql (U)Ord ered By: Rashi Barry on 01-29-2022 Nitrite Ql (U) Negative Negative [facility] No Panel InformationOrdered By: Rashi Barry on 01-29-2022 Estimated GFR () > 60 mL/Min [facility] Comment on above: GFR estimated refere nce range: According to KDOQI guidelines, <60 ml/min/1.73m2 is sufficient to diagnose a patient with chronic kidney disease. Pharmacy Creatinine Clearance (Chem N/A [facility] Platelet mean volume Auto (B ld) [Entitic vol]Ordered By: Rashi Barry on 01-29-2022 Platelet mean volume (Bld) [Entitic vol] 8.1 fL 6.3-10.[address] [facility] Platelet poor plasma interna tional normalized ratio (INR) by coagulation assay (relatOrdered By: Rashi Barry on 01-29-2022 INR Coag (PPP) [Relative time] 1.0 {INR} [facility] Comment on above: INR Therapeutic Rang e A) Pre- and Peroperative OAT started two weeks before surgery. NOT HIP SURGERY: 1.5 - 2.5 HIP SURGERY: 2 - 3B) Primary and secondary prevention of venous THROMBOSIS: 2 - 3C) Active venous thrombosis, pulmonary embolismand prevention of recurrent venous thrombosis: 2 - 3D) Prevention of arterial thromboembolismincluding patients with mechanical heart valves: 3 - 4.5 Platelets Auto (Bld) [#/Vol] Ordered By: Rashi Barry on 01-29-2022 Platelets (Bld) [#/Vol] 281 10*3/uL 150-[address] [facility] Protein Auto test strip (U) [Mass/Vol]Ordered By: Rashi Barry on 01-29-2022 Protein (U) [Mass/Vol] Negative Negative [facility] Protein [Mass/volume] in Ser um or PlasmaOrdered By: Rashi Barry on 01-29-2022 Protein [Mass/Vol] 6.3 g/dL 6.1-7.[address] [facility] RBC Auto (Bld) [#/Vol]Ordere d By: Rashi Barry on 01-29-2022 RBC (Bld) [#/Vol] 4.76 10*6/uL 3.60-5.00 [facility] Serum or plasma alanine agustin otransferase measurement without P-5'-P (enzymatic activiOrdered By: Rashi Barry on 01-29-2022 ALT No additional P-5'-P [Catalytic activity/Vol] 16 U/L 10-[address] [facility] Serum or plasma albumin/glob ulin mass ratioOrdered By: Rashi Barry on 01-29-2022 Albumin/Globulin [Mass ratio] 1.6 {ratio} [facility] Serum or plasma alkaline radha sphatase measurement (enzymatic activity/volume)Ordered By: Rashi Barry on 01-29-2022 ALP [Catalytic activity/Vol] 46 U/L 32-[address] [facility] Serum or plasma anion gap de terminationOrdered By: Rashi Barry on 01-29-2022 Anion gap [Moles/Vol] 13.4 mmol/L 6.0-15.0 [facility] Serum or plasma aspartate am inotransferase measurement (enzymatic activity/volume)Ordered By: Rashi Barry on 01-29-2022 AST [Catalytic activity/Vol] 18 U/L 10- [facility] Serum or plasma calcium nuzhat urement (mass/volume)Ordered By: Rashi Barry on 01-29-2022 Calcium [Mass/Vol] 9.2 mg/dL 8.2-10.[address] [facility] Serum or plasma chloride aly surement (moles/volume)Ordered By: Rashi Barry on 01-29-2022 Chloride [Moles/Vol] 107 mmol/L 95-114 [facility] Serum or plasma glucose nuzhat urement (mass/volume)Ordered By: Rashi Barry on 01-29-2022 Glucose [Mass/Vol] 98 mg/dL 70-[address] [facility] Comment on above: ADA recommended refe rence rangeRandom Glucose Reference Range is dependent on time and content of last meal. Glucose of more than 200 mg/dL in a nonstressed, ambulatory subject supports the diagnosis of Diabetes Mellitus. Serum or plasma potassium me asurement (moles/volume)Ordered By: Rashi Barry on 01-29-2022 Potassium [Moles/Vol] 4.2 mmol/L 3.5-5.1 [facility] Serum or plasma sodium measu rement (moles/volume)Ordered By: Rashi Barry on 01-29-2022 Sodium [Moles/Vol] 139 mmol/L 136-[address] [facility] Serum or plasma total biliru bin measurement (mass/volume)Ordered By: Rashi Barry on 01-29-2022 Bilirubin [Mass/Vol] 0.6 mg/dL 0.3-1.2 [facility] Serum or plasma total carbon dioxide measurement (moles/volume)Ordered By: Rashi Barry on 01-29-2022 CO2 [Moles/Vol] 22.8 mmol/L 22.0-30.0 [facility] Serum or plasma urea nitroge n measurement (mass/volume)Ordered By: Rashi Barry on 01-29-2022 Urea nitrogen [Mass/Vol] 14 mg/dL 12-[address] [facility] Specific gravity Auto test s trip (U) [Rel density]Ordered By: Rashi Barry on 01-29-2022 Specific gravity (U) [Rel density] 1.032 1.001-1.[address] [facility] Squamous epithelial cells de tection in urine sediment by light microscopyOrdered By: Rashi Barry on 01-29-2022 Epithelial cells.squamous LM Ql (Urine sed) 3-4 [HPF] 0-[address] [facility] TSH DL <= 0.005 mIU/L QnOrde red By: Rashi Barry on 01-29-2022 TSH Qn 2.06 m[IU]/L 0.45-5.[address] [facility] Thyroxine (T4) free [Mass/vo lume] in Serum or PlasmaOrdered By: Rashi Barry on 01-29-2022 Free T4 [Mass/Vol] 0.88 ng/dL 0.61-1.[address] [facility] Urine bacteria detection by automated methodOrdered By: Rashi Barry on 01-29-2022 Bacteria Auto Ql (U) None seen None Seen [facility] Urine clarity by refractomet ry automatedOrdered By: Rashi Barry on 01-29-2022 Clarity Refractometry automated (U) Turbid Clear [facility] Urine glucose measurement by automated test strip (mass/volume)Ordered By: Rashi Barry on 01-29-2022 Glucose Auto test strip (U) [Mass/Vol] Normal mg/dL Normal [facility] Urine hemoglobin detection b y automated test stripOrdered By: Rashi Barry on 01-29-2022 Hemoglobin Auto test strip Ql (U) Negative Negative [facility] Urine leukocyte esterase det ection by automated test stripOrdered By: Rashi Barry on 01-29-2022 Leukocyte esterase Auto test strip Ql (U) 1+ Negative [facility] Urobilinogen Auto test strip (U) [Mass/Vol]Ordered By: Rashi Barry on 01-29-2022 Urobilinogen (U) [Mass/Vol] Normal mg/dL Normal [facility] pH Auto test strip (U)Ordere d By: Rashi Barry on 01-29-2022 pH (U) 5.5 [pH] 5.0-9.[address] [facility] C Urineon 01-26-2018 C Urine Final Report: Light growth of Normal skin daksha isolated Normal [facility] Comment on above: Performed By: #### 1 [id number] ####[facility] Hematology Manual [address] [place] [address] Rapid Strep A Screenon 01-26 S. pyogenes Ag IA Ql (Unsp spec) Negative Normal [facility] Comment on above: Performed By: #### 1 [id number] ####[facility]ology Manual [address] [place] [address] .Manual Abson 01-24-2018 Basophil Abs Man 0.0 10x3/ Normal 0.0-0.2 [facility] Comment on above: Order Comment: Order Added by Discern Expert. Performed By: #### 1 [id number] ####[facility] H[facility]ology Manual [address] [place] [address] Eos Abs Man 0.1 10x3/ Normal 0.0-0.5 [facility] Comment on above: Order Comment: Order Added by Discern Expert. Performed By: #### 1 [id number] ####[facility] Manual [address] [place] [address] Lymph Abs Man 3.5 10x3/ High 1.2-3.4 [facility] Comment on above: Order Comment: Order Added by Discern Expert. Performed By: #### 1 [id number] ####[facility] Manual [address] [place] [address] [place] Abs Man 0.5 10x3/ Normal 0.0-0.7 [facility] Comment on above: Order Comment: Order Added by Discern Expert. Performed By: #### 1 [id number] ####[facility] [address] [place] [address] Segs Abs Man 7.9 10x3/ High 1.4-6.5 [facility] Comment on above: Order Comment: Order Added by Discern Expert. Performed By: #### 1 [id number] ####[facility] Manual [address] [place] [address] BMPon 01-24-2018 Anion gap 3 molar conc 10 mmol/L Normal 10-20 [facility] Comment on above: Performed By: #### 2 [id number] ####[facility] [address] [place] [address] Calcium mass conc 8.8 mg/dL Normal 8.6-10.3 [facility] Comment on above: Performed By: #### 2 [id number] ####[facility] [address] [place] [address] Chloride molar conc 110 mmol/L High 98-107 [facility] Comment on above: Performed By: #### 2 [id number] ####[facility] [address] [place] [address] CO2 molar conc 25.0 mmol/L Normal 21.0-32.0 [facility] Comment on above: Performed By: #### 2 [id number] ####[facility] [address] [place] [address] Creatinine mass conc 0.9 mg/dL Normal 0.6-1.3 [facility] Comment on above: Performed By: #### 2 [id number] ####[facility] [address] [place] [address] Glucose mass conc 89 mg/dL Normal 70-99 [facility] Comment on above: Performed By: #### 2 [id number] ####[facility] [address] [place] [address] Potassium molar conc 3.8 mmol/L Normal 3.5-5.3 [facility] Comment on above: Performed By: #### 2 [id number] ####[facility] [address] [place] [address] Sodium molar conc 141 mmol/L Normal 136-145 [facility] Comment on above: Performed By: #### 2 [id number] ####[facility] [address] [place] [address] Urea nitrogen mass conc 22 mg/dL Normal 6-23 [facility] Comment on above: Performed By: #### 2 [id number] ####[facility] [address] [place] [address] Urea nitrogen/Creatinine mass ratio 24.4 ratio Normal 5.4-30.0 [facility] Comment on above: Performed By: #### 2 [id number] ####[facility] [address] [place] [address] CBC w/ Auto Diffon 8 Erythrocyte distribution width Auto Ratio (RBC) 12.9 % Normal 11.5-14.5 [facility] Comment on above: Performed By: #### 2 [id number] ####[facility] [address] [place] [id number] Hematocrit Auto Volume Fraction (Bld) 41.4 % Normal 36.0-48.0 [facility] Comment on above: Performed By: #### 2 [id number] ####[facility] [address] [place] 8[address] Hemoglobin mass conc (Bld) 13.9 g/dL Normal 12.0-16.0 [facility] Comment on above: Performed By: #### 2 [id number] ####[facility] [address] [place] [id number] MCH Auto Entitic mass (RBC) 32.0 pg High 27.0-31.0 [facility] Comment on above: Performed By: #### 2 [id number] ####[facility] [address] [place] 8[address] MCHC Auto mass conc (RBC) 33.6 g/dL Normal 33.0-37.0 [facility] Comment on above: Performed By: #### 2 [id number] ####[facility] [address] [place] [address]043[address] MCV Auto Entitic volume (RBC) 95.3 fL Normal 78.0-100.0 [facility] Comment on above: Performed By: #### 2 [id number] ####[facility] [address] [place] [address] Platelet mean volume Auto Entitic volume (Bld) 7.6 fL Normal 7.4-11.0 [facility] Comment on above: Performed By: #### 2 247001 ####[facility] [address] [place] [address] Platelets Auto #/vol (Bld) 251 E3/mcL Normal 130-400 [facility] Comment on above: Performed By: #### 2 [id number] ####[facility] [address] [place] [address] RBC Auto #/vol (Bld) 4.34 E6/mcL Normal 3.90-5.40 [facility] Comment on above: Performed By: #### 2 [id number] ####[facility] [address] [place] [address] WBC Auto #/vol (Bld) 11.9 E3/mcL High 3.6-11.0 [facility] Comment on above: Performed By: #### 2 [id number] ####[facility] [address] [place] [address] Hep Func Panelon 01-24-2018 Albumin mass conc 3.8 g/dL Normal 3.4-5.0 [facility] Comment on above: Performed By: #### 2 [id number] ####[facility] [address] [place] [address] Albumin/Globulin mass ratio 1.7 {ratio} Normal 1.1-1.9 [facility] Comment on above: Performed By: #### 2 [id number] ####[facility] [address] [place] [address] Alk Phos 40 Int._Unit/L Normal 33-110 [facility] Comment on above: Performed By: #### 2 [id number] ####[facility] [address] [place] [address] ALT enzyme act/vol 13 Int._Unit/L Normal 7-45 [facility] Comment on above: Performed By: #### 2 [id number] ####[facility] [address] [place] [address] AST enzyme act/vol 12 Int._Unit/L Normal 9-39 [facility] Comment on above: Performed By: #### 2 [id number] ####HIREN [address]scg6664 [place] [address] Bili Direct .02 mg/dL Normal .00-.30 [facility] Comment on above: Performed By: #### 2 [id number] ####HIREN Swhtzkkn7635 [place] [address] Bili Indirect 0.4 Normal [facility] Comment on above: Result Comment: No e stablished ranges available for the Indirect Biliruben. Performed By: #### 2 [id number] ####HIREN [address] [place] [address] Bili Total 0.4 mg/dL Normal 0.0-1.2 [facility] Comment on above: Performed By: #### 2 [id number] ####HIREN [address] [place] [address] Globulin Calculated mass conc (S) 2.0 g/dL Normal 2.0-4.0 [facility] Comment on above: Performed By: #### 2 [id number] ####HIREN [address] [place] [address] Protein mass conc 6.0 g/dL Low 6.4-8.2 [facility] Comment on above: Performed By: #### 2 [id number] ####HIREN [address] [place] [address] Influenza A&B Agon 8 Influenzae A Ag Negative Normal Negative [facility] Comment on above: Performed By: #### 1 [id number] ####[facility] Hematology Manual [address] [place] [address] Influenzae B Ag Negative Normal Negative [facility] Comment on above: Performed By: #### 1 [id number] ####[facility] Hematology Manual [address] [place] [address] Manual Diffon 01-24-2018 Basophil Man 0 % Normal 0-1 [facility] Comment on above: Order Comment: Order Added by Discern Expert. Performed By: #### 2 [id number] ####HIRENTor [address]cePz[address] [place] [address] Eos Man 1 % Normal 0-5 [facility] Comment on above: Order Comment: Order Added by Discern Expert. Performed By: #### 2 [id number] ####HIREN [address]Kmni60[address] [place] [address] Lymph Man 29 % Normal 14-48 [facility] Comment on above: Order Comment: Order Added by Discern Expert. Performed By: #### 2 [id number] ####HIRENTor [address]UeiHxtw[address]57 [place] [address] Monocyte Man 4 % Normal 1-11 [facility] Comment on above: Order Comment: Order Added by Discern Expert. Performed By: #### 2 [id number] ####HIREN [address] [place] [id number] RBC Morph NORMAL Normal [facility] Comment on above: Order Comment: Order Added by Discern Expert. Performed By: #### 2 [id number] ####HIREN [address] [place] [address] Segs Man 66 % Normal 37-75 [facility] Comment on above: Order Comment: Order Added by Discern Expert. Performed By: #### 2 [id number] ####HIREN [address]Vurw1442 [place] [address] Sed Rate Automatedon 018 Sed Rate Automated 6 mm/hr Normal [facility] Comment on above: Result Comment: AGE- SPECIFIC REFERENCE RANGES FOR SEDIMENTATION RATE AUTOMATED REFERENCE RANGE - MM/HR AGE MEN WOMEN 0-2 0-2 - PUBERTY 3-13 3-13 PUBERTY - 50 YRS 0-15 0-20 > 50 YRS 0-20 0-30 Performed By: #### 1 [id number] ####HIREN Hematology Manual [address] [place] [address] TSHon 01-24-2018 Thyrotropin Qn 2.22 mcIU/mL Normal 0.30-5.60 [facility] Comment on above: Performed By: #### 2 [id number] ####HIREN [address] [place] [id number] UA Completeon 01-24-2018 Color Nom (U) Yellow Normal Yellow [facility] Comment on above: Performed By: #### 8 [id number] ####HIREN Urinalysis Automated [address] [place] [address] Glucose mass conc (U) Negative Normal Negative [facility] Comment on above: Performed By: #### 8 [id number] ####HIREN Urinalysis Automated [address]79 [place] [address] Ketones Ql (U) Negative Normal Negative [facility] Comment on above: Performed By: #### 8 [id number] ####HIREN Urinalysis Automated [address]36 [place] [address] RBC Test strip #/vol (U) 0-3 Normal 0-3 [facility] Comment on above: Performed By: #### 8 [id number] ####HIREN Urinalysis Automated [address]am[address] [place] [address] UA Blood Negative Normal Negative [facility] Comment on above: Performed By: #### 8 [id number] ####HIREN Urinalysis Automated [address] [place] [address] UA Bacteria 1+ /HPF Abnormal None [facility] Comment on above: Performed By: #### 8 [id number] ####HIREN Urinalysis Automated [address] [place] [address] UA Clarity SltCloudy Abnormal Clear [facility] Comment on above: Performed By: #### 8 [id number] ####HIREN Urinalysis Automated [address] [place] [id number] UA Leuk Est Negative Normal Negative [facility] Comment on above: Performed By: #### 8 [id number] ####HIREN Urinalysis Automated [address] [place] 8043[address] UA Mucous Trace Abnormal Trace [facility] Comment on above: Performed By: #### 8 [id number] ####HIREN Urinalysis Automated [address]ytdoi1692 [place] [address] UA Nitrite Negative Normal Negative [facility] Comment on above: Performed By: #### 8 [id number] ####HIREN Urinalysis Automated [address] [place] [address] UA pH 6.0 Normal 4.6-8.0 [facility] Comment on above: Performed By: #### 8 [id number] ####HIREN Urinalysis Automated [address]qgfpizzbt4895 [place] [address] UA Protein Negative Normal Negative [facility] Comment on above: Performed By: #### 8 [id number] ####HIREN Urinalysis Automated [address]lfut[address]17 [place] [address] UA Spec Grav 1.018 Normal 1.003-1.03 0 [facility] Comment on above: Performed By: #### 8 [id number] ####HIREN Urinalysis Automated [address]ovhwj[address]75 [place] [address] UA Squam Epithelial 5-10 Abnormal 0-5 [facility] Comment on above: Performed By: #### 8 [id number] ####HIREN Urinalysis Automated [address]kgi7548 [place] [address] UA Urobilinogen 2.0 mg/dL Abnormal [facility] Comment on above: Result Comment: Due to a manufacturing issue, low positive urobilinogen results may be fasely positive. Correlate with urine bilirubin and additional clinical/laboratory findings to assess the risk of hemolytic anemia or liver disease. If clinically indicated, repeat testing with an alternate method is available by contacting the laboratory within 24 hours. Performed By: #### 8 [id number] ####HIREN Urinalysis Automated [address] [place] 8043305 UA WBC 0-5 Normal 0-5 [facility] Comment on above: Performed By: #### 8 [id number] ####HIREN Urinalysis Automated [address]it[address]rv[address] [place] [address] Urobilinogen Test strip Qn (U) Negative Normal Negative [facility] Comment on above: Performed By: #### 8 [id number] ####HIREN Urinalysis Automated [place] [id number] XR Chest AP Portableon 01-24 XR Chest AP Portable Exam Date/Time:01/24 17:20 ESTReason for Exam:CoughReportSTUDY:XR Chest AP Portable; 01/24/2018 5:20 pmINDICATION:Cough.COMPARIS ON:None. ИРИНА CLINICIAN:Yasmin HutchisonFINDINGS:Cardiac silhouette not enlargedNo segmental consolidation, no large pleural effusion or pneumothoraxOsseous structures as visualized are grossly intact.IMPRESSION:Chest x-ray within normal limits. FINAL REPORT Dictated: 01/24/2018 5:35 pm Seven Maxwell DOigned (Electronic Signature): 01/24/2018 5:35 pmSigned by: Brendon Maxwell DO Technologist: SR Normal [facility] eGFRon 01-24-2018 eGFR AA >60 [facility] Comment on above: Order Comment: Order added by Discern Expert. Performed By: #### 1 [id number] ####HIREN [address]Tama[address]23 [place] [address] GFR/1.73 sq M predicted among non-blacks MDRD vol rate/area (S/P/Bld) mL/min/{1.73_m2} Normal [facility] Comment on above: Order Comment: Order added by Discern Expert. Performed By: #### 1 [id number] ####HIREN [address]wNjnw0823 [place] [address] zzplt morphon 01-24-2018 Platelet morphology finding Nom (Bld) NORMAL Normal [facility] Comment on above: Performed By: #### 9 [id number] ####HIREN [address]flWhap[address]359 [place] [address] Platelets Auto #/vol (Bld) NORMAL Normal [facility] Comment on above: Performed By: #### 9 [id number] ####HIREN [address]au[address] [place] [address] Vital Signs Date Time Vital Sign Value Performing Clinician Facility 10-10-2024 15:53-0400 Body height 162.56 cm Rashi Asher DO Work Phone: [facility] 10-10-2024 15:53-0400 Body mass index (BMI) [Ratio] 41.7 kg/m2 Rashi Asher DO Work Phone: [facility] 10-10-2024 15:53-0400 Body temperature 97.3 [degF] Rashi Asher DO Work Phone: [facility] 10-10-2024 15:53-0400 Body weight 110.22 kg Rashi Asher DO Work Phone: [facility] 10-10-2024 15:53-0400 Diastolic blood pressure 94 mm[Hg] Rashi Asher DO Work Phone: [facility] 10-10-2024 15:53-0400 Heart rate 82 /min Rashi Asher DO Work Phone: [facility] 10-10-2024 15:53-0400 Respiratory rate 18 /min Rashi Asher DO Work Phone: [facility] 10-10-2024 15:53-0400 SaO2% (BldA) [Mass fraction] 97 % Rashi Asher DO Work Phone: [facility] 10-10-2024 15:53-0400 Systolic blood pressure 136 mm[Hg] Rashi Asher DO Work Phone: [facility] 08-04-2024 14:38-0400 Body height 162.56 cm Rashi Asher DO Work Phone: [facility] 08-04-2024 14:38-0400 Body mass index (BMI) [Ratio] 40.6 kg/m2 Rashi Asher DO Work Phone: [facility] 08-04-2024 14:38-0400 Body weight 107.5 kg Rashi Asher DO Work Phone: [facility] 08-04-2024 14:38-0400 Diastolic blood pressure 84 mm[Hg] Rashi Asher DO Work Phone: [facility] 08-04-2024 14:38-0400 Heart rate 90 /min Rashi Asher DO Work Phone: [facility] 08-04-2024 14:38-0400 Respiratory rate 20 /min Rashi Asher DO Work Phone: [facility] 08-04-2024 14:38-0400 SaO2% (BldA) [Mass fraction] 95 % Rashi Asher DO Work Phone: [facility] 08-04-2024 14:38-0400 Systolic blood pressure 132 mm[Hg] Rashi Asher DO Work Phone: [facility] 08-01-2024 09:32-0400 Body mass index (BMI) [Ratio] 40.69 kg/m2 Quinn Galan DO Work Phone: [facility] 08-01-2024 09:32-0400 Body weight 109.23 kg Quinn Adama DO Work Phone: [facility] 08-01-2024 09:32-0400 Diastolic blood pressure 74 mm[Hg] Quinn Adama DO Work Phone: [facility] 08-01-2024 09:32-0400 Systolic blood pressure 118 mm[Hg] Quinn Adama DO Work Phone: [facility] 06-27-2024 09:53-0400 Diastolic blood pressure 84 mm[Hg] Rashi Asher DO Work Phone: [facility] 06-27-2024 09:53-0400 SaO2% (BldA) [Mass fraction] 98 % Rashi Asher DO Work Phone: [facility] 06-27-2024 09:53-0400 Systolic blood pressure 142 mm[Hg] Rashi Asher DO Work Phone: [facility] 06-03-2024 09:56-0400 Body height 162.56 cm [facility] 06-03-2024 09:56-0400 Body mass index (BMI) [Ratio] 39.6 kg/m2 [facility] 06-03-2024 09:56-0400 Body weight 104.92 kg [facility] 06-03-2024 09:56-0400 Diastolic blood pressure 80 mm[Hg] [facility] 06-03-2024 09:56-0400 Heart rate 80 /min [facility] 06-03-2024 09:56-0400 Respiratory rate 20 /min [facility] 06-03-2024 09:56-0400 SaO2% (BldA) [Mass fraction] 96 % [facility] 06-03-2024 09:56-0400 Systolic blood pressure 128 mm[Hg] [facility] 05-20-2024 09:48-0500 Diastolic blood pressure 78 mm[Hg] [facility] 05-20-2024 09:48-0500 Heart rate 82 /min [facility] 05-20-2024 09:48-0500 SaO2% (BldA) [Mass fraction] 98 % [facility] 05-20-2024 09:48-0500 Systolic blood pressure 130 mm[Hg] [facility] 04-21-2024 14:31-0500 Body height 162.56 cm [facility] 04-21-2024 14:31-0500 Body mass index (BMI) [Ratio] 35.6 kg/m2 [facility] 04-21-2024 14:31-0500 Body weight 94.34 kg [facility] 04-21-2024 14:31-0500 Diastolic blood pressure 70 mm[Hg] [facility] 04-21-2024 14:31-0500 Heart rate 76 /min [facility] 04-21-2024 14:31-0500 SaO2% (BldA) [Mass fraction] 98 % [facility] 04-21-2024 14:31-0500 Systolic blood pressure 134 mm[Hg] [facility] 09-17-2023 15:00-0400 Body height 162.56 cm [facility] 09-17-2023 15:00-0400 Body mass index (BMI) [Ratio] 36.2 kg/m2 [facility] 09-17-2023 15:00-0400 Body weight 95.7 kg [facility] 09-17-2023 15:00-0400 Diastolic blood pressure 82 mm[Hg] [facility] 09-17-2023 15:00-0400 Heart rate 74 /min [facility] 09-17-2023 15:00-0400 SaO2% (BldA) [Mass fraction] 98 % [facility] 09-17-2023 15:00-0400 Systolic blood pressure 120 mm[Hg] [facility] 07-01-2023 13:44-0400 Body height 162.56 cm [facility] 07-01-2023 13:44-0400 Body mass index (BMI) [Ratio] 35.6 kg/m2 [facility] 07-01-2023 13:44-0400 Body weight 94.34 kg [facility] 07-01-2023 13:44-0400 Diastolic blood pressure 80 mm[Hg] [facility] 07-01-2023 13:44-0400 Heart rate 86 /min [facility] 07-01-2023 13:44-0400 SaO2% (BldA) [Mass fraction] 98 % [facility] 07-01-2023 13:44-0400 Systolic blood pressure 140 mm[Hg] [facility] 01-19-2023 14:15-0400 Body height 162.56 cm Rashi Asher Other [facility] Other 01-19-2023 14:15-0400 Body mass index (BMI) [Ratio] 36.21 kg/m2 Rashi Asher Other [facility] Other 01-19-2023 14:15-0400 Body temperature 98.2 [degF] Rahsi Asher Other [facility] Other 01-19-2023 14:15-0400 Body weight 95.71 kg Rashi Asher Other [facility] Other 01-19-2023 14:15-0400 Diastolic blood pressure 84 mm[Hg] Rashi Asher Other [facility] Other 01-19-2023 14:15-0400 SaO2% (BldA) [Mass fraction] 97 % Rashi Asher Other [facility] Other 01-19-2023 14:15-0400 Systolic blood pressure 126 mm[Hg] Rashi Asher Other [facility] Other 09-17-2022 15:00-0400 Body height 162.56 cm Rashi Asher Other [facility] Other 09-17-2022 15:00-0400 Body mass index (BMI) [Ratio] 35.36 kg/m2 Rashi Asher Other [facility] Other 09-17-2022 15:00-0400 Body temperature 98.5 [degF] Rashi Asher Other [facility] Other 09-17-2022 15:00-0400 Body weight 93.44 kg Rashi Asher Other [facility] Other 09-17-2022 15:00-0400 Diastolic blood pressure 70 mm[Hg] Rashi Asher Other [facility] Other 09-17-2022 15:00-0400 SaO2% (BldA) [Mass fraction] 97 % Rashi Asher Other [facility] Other 09-17-2022 15:00-0400 Systolic blood pressure 106 mm[Hg] Rashi Asher Other [facility] Other 08-25-2022 15:00-0400 Body height 162.56 cm Rashi Asher Other [facility] Other 08-25-2022 15:00-0400 Body mass index (BMI) [Ratio] 35.24 kg/m2 Rashi Asher Other [facility] Other 08-25-2022 15:00-0400 Body weight 93.12 kg Rashi Asher Other [facility] Other 08-25-2022 15:00-0400 Diastolic blood pressure 102 mm[Hg] Rashi Asher Other [facility] Other 08-25-2022 15:00-0400 Respiratory rate 18 /min Rashi Lb Other [facility] Other 08-25-2022 15:00-0400 SaO2% (BldA) [Mass fraction] 99 % Rashi Lb Other [facility] Other 08-25-2022 15:00-0400 Systolic blood pressure 150 mm[Hg] Rashi Lb Other [facility] Other Encounters Encounter Date Encounter Type Care Provider Facility Start: 12-06-2024 End: 12-06-2024 Patient encounter procedure Quinn Adama DO Work Phone: [facility] Start: 12-06-2024 End: 12-06-2024 Periodic preventive med est patient 40-64yrs Quinn Adama DO Work Phone: [facility] Comment on above: Well woman exam with routine gynecological exam; Encounter for screening mammogram for malignant neoplasm of breast; Encounter for weight management Start: 12-06-2024 End: 12-06-2024 Bamboo flowsheet Quinn Adama DO Work Phone: [facility] Start: 12-06-2024 End: 12-06-2024 Bamboo flowsheet Quinn Adama DO Work Phone: [facility] Start: 11-23-2024 End: 11-23-2024 ambulatory XXXX NONE Facility:[facility] Start: 10-10-2024 End: 10-10-2024 ambulatory Rashi Asher DO Work Phone: [facility] Work Phone: Start: 10-10-2024 End: 10-10-2024 Patient encounter procedure Rashi Asher DO -[facility] [place] Work Phone: Start: 08-04-2024 End: 08-04-2024 ambulatory Rashi Asher DO Work Phone: [facility] Work Phone: Start: 08-04-2024 End: 08-04-2024 Patient encounter procedure Rashi Asher DO Work Phone: [facility] Work Phone: Start: 08-01-2024 End: 08-01-2024 Bamboo flowsheet Quinn Adama DO Work Phone: [facility] Start: 08-01-2024 End: 08-01-2024 Bamboo flowsheet Quinn Adama DO Work Phone: [facility] Start: 08-01-2024 End: 08-01-2024 Clinisync Result Encounter Quinn Adama DO Work Phone: [facility] Unsolicited Start: 08-01-2024 End: 08-01-2024 Office outpatient new 20 minutes Quinn Adama DO Work Phone: [facility] Comment on above: Encounter for weight management; Glucose intolerance Start: 08-01-2024 End: 08-01-2024 ambulatory QUINN ADAMA Not Available Start: 06-30-2024 End: 06-30-2024 ambulatory Rashi Asher DO Work Phone: [facility] Work Phone: Start: 06-30-2024 End: 06-30-2024 Discharged Recurring Rashi Zavaleta Lb DO -[facility] [place] Work Phone: Start: 06-30-2024 Registered Recurring Rashi Rosa lucas DO Work Phone: [facility] [place] Work Phone: Start: 06-27-2024 End: 06-27-2024 ambulatory Rashi Asher DO Work Phone: [facility] Work Phone: Start: 06-27-2024 End: 06-27-2024 Patient encounter procedure Rashi Asher DO Work Phone: [facility] [place] Work Phone: Start: 06-23-2024 Registered Recurring Rashi zavala DO Work Phone: [facility] [place] Work Phone: Start: 06-03-2024 End: 06-03-2024 ambulatory [facility] Work Phone: Start: 06-03-2024 End: 06-03-2024 Patient encounter procedure [facility] [place] Work Phone: Start: 05-23-2024 Non-patient / Non-visit [facility] Work Phone: Start: 05-23-2024 End: 05-23-2024 ambulatory RASHI ASHER Facility:[facility] Start: 05-20-2024 End: 05-20-2024 ambulatory [facility] Work Phone: Start: 05-20-2024 End: 05-20-2024 Patient encounter procedure [facility] [place] Work Phone: Start: 05-11-2024 End: 05-11-2024 ambulatory SELF REFERRAL Facility:[facility] Start: 05-06-2024 Non-patient / Non-visit [facility] Work Phone: Start: 04-21-2024 End: 04-21-2024 ambulatory [facility] Work Phone: Start: 04-21-2024 End: 04-21-2024 Patient encounter procedure [facility] [place] Work Phone: Start: 09-17-2023 End: 09-17-2023 ambulatory [facility] Work Phone: Start: 09-17-2023 End: 09-17-2023 Patient encounter procedure [facility] [place] Work Phone: Start: 07-01-2023 End: 07-01-2023 ambulatory [facility] Work Phone: Start: 07-01-2023 End: 07-01-2023 Patient encounter procedure [facility] [place] Work Phone: Start: 03-04-2023 End: 03-04-2023 ambulatory Rashi Asher Other [facility] Other Start: 03-04-2023 Telephone encounter Rashi Garc[facility] [place] Start: 02-25-2023 End: 02-25-2023 ambulatory Rashi sAher Other [facility] Other Start: 02-25-2023 Telephone encounter Rashi Garc[facility] [place] Start: 01-19-2023 End: 01-19-2023 ambulatory Rashi Asher Other [facility] Other Start: 01-19-2023 Office outpatient vi sit 15 minutes Rashilydia Asher [facility] [place] Start: 10-01-2022 End: 10-01-2022 ambulatory Rashi Asher Other [facility] Other Start: 10-01-2022 Telephone encounter Rashi García [facility] [place] Start: 09-19-2022 End: 09-19-2022 ambulatory Rashi Asher Other [facility] Other Start: 09-19-2022 Telephone encounter Rashi Garc[facility] [place] Start: 09-17-2022 End: 09-17-2022 ambulatory Rashi Asher Other [facility] Other Start: 09-17-2022 Encounter for genera l adult medical examination without abnormal findings Rashi Asher [facility] [place] Start: 09-17-2022 Periodic preventive med est patient 40-64yrs Rashi Asher [facility] [place] Start: 08-25-2022 End: 08-25-2022 ambulatory Rashi Asher Other [facility] Other Start: 08-25-2022 Office consultation new/estab patient 40 min Rashi Asher [facility] [place] Start: 01-29-2022 End: 01-29-2022 ambulatory MD Chelly Garcia Work Phone: [facility] Work Phone: Start: 01-29-2022 End: 01-29-2022 Patient encounter procedure MD Chelly Garcia Work Phone: [facility] [address] Start: 01-24-2018 End: 01-24-2018 Emergency department patient visit Chelly Garcia Facility:[facility] Start: 01-24-2018 Patient encounter procedure Facility:[id number] Start: 01-05-2017 End: 01-05-2017 Patient encounter procedure Janice Patino [facility] Start: 10-20-2016 End: 10-20-2016 Ambulatory DARRIN Talavera [facility] Procedures Date Procedure Procedure Detail Performing Clinician Start: 08-01-2024 ALL CBC WITH AUTO DIFF Quinn Galan DO Work Phone: Plan of Treatment Date Care Activity Detail Author Start: 12-13-2025 End: 12-13-2025 Patient encounter procedure 12/13/2025 4:00 PM EDT Procedure Visit [facility] [address] [place] [address] [place] [id number] Quinn Galan, DO [address] [place] [address] [facility] [place] [facility] Start: 01-03-2025 End: 01-03-2025 Patient encounter procedure 01/03/2025 2:30 PM EDT Office Visit [facility] [address] [place] [id number] Courtney Osman PA [address] [place] [address] [facility] Start: 12-06-2024 End: 12-06-2024 Patient encounter procedure [facility] Comment on above: Arrived Start: 10-25-2024 End: 10-25-2024 Patient encounter procedure 10/25/2024 8:50 AM EDT Office Visit [facility] [address] [place] [phone] Quinn Galan, DO [address] [place] [address] [facility] Start: 08-01-2024 End: 08-01-2024 Patient encounter procedure 08/01/2024 9:10 AM EDT Office Visit [facility] [address] [place] [id number] Quinn Galan, DO [address] [place] [address] Arrived [facility] Comment on above: Arrived Start: 05-20-2024 Patient referral [facility] Work Phone: Start: 01-29-2022 Hemolytic complement CH50 level [facility] Start: 01-29-[address] [facility] Start: 01-12-2017 Ambulatory 01/12/2017 Off ice Visit Allergy and Immunology Darrin Guzman MD [address] [place] [address] [phone] [facility] Start: 11-21-2016 Influenza vaccination SEQUENTI AL INFLUENZA VACCINE (#1) [facility] Work Phone: Start: 1975 Screening for malign ant neoplasm of cervix PAP SMEAR [facility] Work Phone: Start: 1975 Tetanus vaccination TETANUS EVERY 10 YR [facility] Work Phone: CBC W Auto Different ial panel - Blood CBC and differential Lab Routine Encounter for weight management Glucose intolerance Ordered: 08/01/2024 [facility] Comment on above: Ordered: 08/01/2024 Comprehensive metabo lic 1999 panel - Serum or Plasma [facility] Comprehensive metabo lic 1999 panel - Serum or Plasma Comprehensive metabolic panel Lab Routine Encounter for weight management Glucose intolerance Ordered: 08/01/2024 [facility] Comment on above: Ordered: 08/01/2024 Hemoglobin A1c/Hemoglobin.total in Blood Hemoglobin A1c Lab Routine Encounter for weight management Glucose intolerance Ordered: 08/01/2024 [facility] Comment on above: Ordered: 08/01/2024 Nuclear Ab [Titer] i n Serum [facility] Work Phone: Patient referral [facility] Work Phone: THIN PREP TIS PAP AN D HR HPV DNA THIN PREP TIS PAP AND HR HPV DNA Pathology and Cytology Routine Well woman exam with routine gynecological exam Ordered: 12/06/2024 [facility] [employer] Work Phone: Comment on above: Ordered: 12/06/2024 Thyrotropin [Units/volume] in Serum or Plasma TSH Lab Routine Encounter for weight management Glucose intolerance Ordered: 08/01/2024 [facility] Work Phone: Comment on above: Ordered: 08/01/2024 [facility] Immunizations Immunization Date Immunization Notes Care Provider Simeon marie 10-24-2021 tetanus toxoid, redu beth diphtheria toxoid, and acellular pertussis vaccine, adsorbed Rashi Asher DO Work Phone: [facility] Payers Date Payer Category Payer Self-pay [address] [facility] [place] [id number] 2017 [facility] [id number] 1975 Unknown [id number] 1975 Unknown [id number] 1975 Unknown [id number] 1975 Unknown [id number] 727 1975 Unknown [id number] 1975 Unknown [id number] Self-pay [id number] Unknown [id number] Medicaid [id number] Unknown [employer]/BS [id number] Unknown [id number] Social History Date Type Detail Facility Start: 10-20-2016 End: 09-17-2023 Tobacco smoking status [facility] Current every day smoker [facility] Start: 10-20-2016 Cigarettes smoked current (pack per day) - Reported [employer] Work Phone: Start: 1975 Sex Assigned At Not on file [employer] Work Phone: Start: 1975 Sex Assigned At Female [facility] Sex Assigned At [facility] Start: 09-17-2023 End: 09-17-2023 Tobacco smoking status [facility] Smoker (finding) [facility] Start: 04-21-2024 End: 08-04-2024 Sex Female (finding) [facility] Tobacco smoking stat [facility] Tobacco smoking consumption unknown [facility] Healthcare Clinical Notes 08-25-2022 to 12-06-2024 Adina Cali LPN - 12/06/2024 2:30 PM EDT Note Date & Type Note Facility 12-06-2024 History of Presen t illness Narrative Reason for Appointment: Patient ID: Kerry Shepard [...] nursing note reviewed. Exam conducted with a caseworker protective services present. Vitals: Estimated body mass index is 40.69 kg/m as calculated from the following: Height as [...] them. Patient can also view results via [employer]. I reinforced importance of condom use for [...] by Adina Cali LPN on behalf of: Quinn Galan DO documented in this encounter [facility] 08-04-2024 Evaluation note Diagnosis Onset Date Resolution Prediabetes chronic August 04 2:28pm [facility] Work Phone: 1(196) 231-738605-15-2025 Evaluation note* Diagnosis Onset Date Resolution Status Admit Date Prediabetes chronic August 04 2:28pm Hoffa's fat pad disease noneactive [facility] 2024 3:48pm [facility] Work Phone: 1(688) 854-370405-12-2025 History of Present illness Narrative* Samara Nash LPN - 08/01/2024 9:10 AM EDT Reason for Appointment: Patient ID: Kerry Shepard is a 49 y.o. female who presents for Weight Management Patient presents today for Weight Management Consult. MEDICATIONS Current Outpatient Medications Medication Instructions famotidine [...] History HISTORY PAST MEDICAL HISTORY SOCIAL HISTORY History reviewed. No pertinent past medical history. Social History Tobacco Use Smoking status: Not on file Smokeless tobacco: Not on file Substance Use Topics Alcohol use: Not on file Drug use: Not on file FAMILY HISTORY No family history on file. SURGICAL HISTORY History reviewed. No pertinent surgical history. REVIEW OF SYSTEMS Review of Systems: Review of Systems Constitutional: Negative. HENT: Negative. Eyes: Negative. Respiratory: Negative. Cardiovascular: Negative. Gastrointestinal: Negative. Genitourinary: Negative. Musculoskeletal: Negative. Skin: Negative. Neurological: Negative. All other systems reviewed and are negative. Hematological: Negative. Endocrine: Negative. Allergic/Immunologic: Negative. OBJECTIVE Objective: Physical Exam Constitutional: Appearance: Normal appearance. She is well-developed. Cardiovascular: Rate and Rhythm: Normal rate and [...] nursing note reviewed. Exam conducted with a caseworker protective services present. Vitals: Estimated body mass index is 40.69 kg/m as calculated from the following: Height as of 10/29/21: 5' 4.5 . Weight as of this encounter: 240 lb 12.8 oz. BP: 118/74 No LMP recorded. ASSESSMENT & PLAN ICD-10-CM 1. Encounter for weight management Z76.89 Patient presents for weight management. Patient voiced that she has not had labs drawn for sometime& not sure about A1c levels. Patient desires to have Ozempic sent to pharmacy. Patient does have history for knee issues and would benefit from weight loss. Patient given labs to have drawn and in the meantime. Patient to follow up in office in 3 months. Patient having labs drawn today. Documented by Samara Nash LPN on behalf of: Quinn Galan DO documented in this [facility]02-28-2025 Evaluation note* Diagnosis Onset Date Resolution Status Admit Date Achilles tendinosis of right ankle noneactive May 20, 2 025 9:40am Achilles tendinosis of right ankle noneactive June 03, 2024 9:53am Achilles tendinosis of right ankle noneactive June 27, 2024 9:42am Heel spur noneactive June 27 9:42am Prediabetes chronic August 04 2:28pm [facility] Work Phone: 1(283) 446-929901-30-2025 Evaluation note* Diagnosis Onset Date Resolution Status Admit Date Arthritis of knee, degenerative chronic April 21 2:23pm Achilles tendinosis of right ankle noneactive April 21 2:23pm Achilles tendinosis of right ankle noneactive May 20, 2 025 9:40am [facility] Work Phone: 1(502) 890-594201-30-2025 Evaluation note* Diagnosis Onset Date Resolution Status Admit Date Arthritis of knee, degenerative chronic April 21 2:23pm Achilles tendinosis of right ankle noneactive April 21 2:23pm Achilles tendinosis of right ankle noneactive May 20, 2 025 9:40am Achilles tendinosis of right ankle noneactive June 03, 2024 9:53am [facility] Work Phone: 1(188) 122-852001-30-2025 Evaluation note* Diagnosis Onset Date Resolution Status Admit Date Arthritis of knee, degenerative chronic April 21 2:23pm Achilles tendinosis of right ankle noneactive April 21 2:23pm Achilles tendinosis of right ankle noneactive May 20, 2 025 9:40am Achilles tendinosis of right ankle noneactive June 03, 2024 9:53am Achilles tendinosis of right ankle noneactive June 27, 2024 9:42am Heel spur noneactive June 27 9:42am [facility] Work Phone: [phone]) 944-803110-30-2023 Evaluation note* Encounter Date Diagnosis Assessment Notes Treatment Notes Treatment Clinical Notes Dec, Left hand paresthesia (ICD-10 - R20.2) Patient doesn't have symptoms definitive for carpal tunnel but is having decreased sensation and will be sent for EMG study. In the meantime will have patient start carpal tunnel rehab exercises. [facility] 07-12-2023 Evaluation note* Encounter Date Diagnosis Assessment Notes Treatment Notes Treatment Clinical Notes Sep, Colon cancer screening (ICD-10 - Z12.11) Sep, Hx of colonic polyp (ICD-10 - Z86.010) [facility] 06-28-2023 Evaluation note* Encounter Date Diagnosis Assessment Notes Treatment Notes Treatment Clinical Notes Aug, Well adult exam (ICD-10 - Z00.00) 47-year-old female who has hypertension that is her only chronic medical condition. She is due for screening lab work. She did get labs done through rheumatology last January that was reviewed today and all within normal limits. She is also due for screening mammogram and this was ordered for her. She is due for screening for colon cancer and had a colonoscopy back in 2012. She is unsure if this showed a polyp or not and if it did show a polyp she will need another screening colonoscopy. If it did not show a polyp and she would like to do the Cologuard. We will obtain the report and review it and if it shows a polyp we will send her for a colonoscopy. She is otherwise doing well and is to follow-up in 1 year or sooner if any acute issue arises. Aug, Essential hypertension (ICD-10 - I10) Aug, Encounter for screening for cardiovascular disorders (ICD-10 - Z13.6) Aug, Colon cancer screening (ICD-10 - Z12.11) Will await prior colonoscopy test but is sounds like there was polyps and therefore she will need repeat colonoscopy. [facility] 06-05-2023 Evaluation note* Encounter Date Diagnosis Assessment Notes Treatment Notes Treatment Clinical Notes Aug, Acute pain of left knee (ICD-10 - M25.562) Patient has pain in the knee joint that has been persistent for the last couple of months with some effusion. This is likely an underlying osteoarthritis flareup. No concerning findings on examination today of internal derangement of the knee. Patient cannot tolerate anti-inflammatories and I recommended steroid injection for the pain. Patient was in agreement and a steroid injection was performed today. Risks and potential adverse reactions were discussed with the patient. Patient tolerated procedure well and she is to follow-up as needed in the future for this issue. Aug, Strain of muscle(s) and tendon(s) of peroneal muscle group at lower leg level, left leg, initial encounter (ICD-10 - S86.312A) Explained to patient that the pain in her lower leg is related to muscle strain in the peroneal muscles. Rehab exercises were given and patient is to work with the stretches and exercises regularly and contact me if not improving. [facility] [employer] Other Evaluation noteNo assessment information available [facility] Work Phone: Evaluation noteNo InformationNortLECOM [facility] [employer] Other Evaluation note* Diagnosis Onset Date Resolution Status Arthritis of knee, degenerative chronic Anterior tibialis tendinitis noneactive Anterior tibialis tendinitis of left leg noneactive Essential hypertension chron ic GERD (gastroesophageal reflux disease) chronic Well adult noneactive [facility] Work Phone: Evaluation note* Diagnosis Onset Date Resolution Status Admit Date Arthritis of knee, degenerative chronic April 21 2:23pm Achilles tendinosis of right ankle noneactive April 21 2:23pm [facility] Work Phone: Evaluation note* Diagnosis Encounter for weight management Glucose intolerance documented in this encounter [facility] HealthcareEvaluation note* Diagnosis Well woman exam with routine gynecological exam Routine gynecological examination Encounter for screening mammogram for malignant neoplasm of breast Encounter for weight management documented in this encounter [facility] HealthcareHospital Discharge instructionsAmbulatory Orders* Referral to PT (Janie) Time Frame: 05/20/24, Location: None Selected [facility] Work Phone: Reason for referral (narrative)No reason for referral information availableW[facility] Work Phone: Reason for visit NarrativeReferral from [facility] [employer] Other Summary Purpose Family History Relationship Condition Age at Onset Recorded Date/T diane father Hypertension Unknown Unknown Diabetes mellitus Unknown Malignant neoplasm Unknown Not Specified Unknown Relationship Condition Age at Onset Recorded Date/T diane father Hypertension Unknown Unknown Diabetes mellitus Unknown Malignant neoplasm Unknown mother Unknown Advance Directives Advance Directive Response Recorded Date/ Time Advance Directives No January 6:10pm Advance Directive Response Recorded Date/ Time Advance Directives No January 5:10pm History of Present Illness * Janice Patino, VINCENZO - 01/05/2017 3:57 PM EDT Called pt in regards to her c/o hives x4 days. Dr. Guzman said to tell her to take Benadryl 3 timesa day as needed. Pt is aware. in this encounter Reason for Referral Reason GI associated with nettie cruz is what patient is requesting for colonoscopy Diagnosis 1 Colon cancer screeni ng (Z12.11) Diagnosis 2 Hx of colonic polyp (Z86.010) Referral Organization [facility] Referring Provider First Name Rashi Referring Provider Last Name Lb Referring Provider Specialty Family Prac scar Referred Organization [facility] Referred Address [address] [place] [id number] Referred Provider Specialty Gastroentero logy Referral Priority Routine Chief Complaint and Reason for Visit Chief Complaint leg and knee pain Chief Complaint leg and knee pain AWV Reason for Visit Arthritis of knee, d egenerative Anterior tibialis tendinitis Anterior tibialis tendinitis of left leg Essential hypertension GERD (gastroesophageal reflux disease) Well adult Chief Complaint Admit Date heel pain, knee pain April 21, 2024 2:23pm Reason for Visit Admit Date Arthritis of knee, degenerative April 21, 2024 2:23pm Achilles tendinosis of right ankle Janua ry 2024 2:23pm Chief Complaint Admit Date heel pain, knee pain April 21, 2024 2:23pm follow up achilles May 20, 2024 9:40am Reason for Visit Admit Date Arthritis of knee, degenerative April 21, 2024 2:23pm Achilles tendinosis of right ankle 2024 2:23pm Achilles tendinosis of right ankle u 2024 9:40am Chief Complaint Admit Date heel pain, knee pain April 21, 2024 2:23pm follow up achilles May 20, 2024 9:40am 4 week post op tenjet June 03, 2024 9 :53am Reason for Visit Admit Date Arthritis of knee, degenerative April 21, 2024 2:23pm Achilles tendinosis of right ankle Marua 2024 2:23pm Achilles tendinosis of right ankle u 2024 9:40am Achilles tendinosis of right ankle June 03, 2024 9:53am Chief Complaint Admit Date heel pain, knee pain April 21, 2024 2:23pm follow up achilles May 20, 2024 9:40am 4 week post op tenjet June 03, 2024 9 :53am R achillies June 23, 2024 7:45 am return to work June 27, 2024 9:42 am Reason for Visit Admit Date Arthritis of knee, degenerative April 21, 2024 2:23pm Achilles tendinosis of right ankle 2024 2:23pm Achilles tendinosis of right ankle u 2024 9:40am Achilles tendinosis of right ankle June 03, 2024 9:53am Achilles tendinosis of right ankle June 27, 2024 9:42am Heel spur June 27, 2024 9:42 am Chief Complaint Admit Date follow up achilles May 20, 2024 9:40am 4 week post op tenjet June 03, 2024 9 :53am return to work June 27, 2024 9:42 am R achillies June 30, 2024 2:3 0pm 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 July 212024 2:28pm Reason for Visit Admit Date Achilles tendinosis of right ankle u 2024 9:40am Achilles tendinosis of right ankle June 03, 2024 9:53am Achilles tendinosis of right ankle June 27, 2024 9:42am Heel spur June 27, 2024 9:42 am Prediabetes August 04, 2024 2:28p m Chief Complaint Admit Date 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 July 212024 2:28pm Reason for Visit Admit Date Prediabetes August 04, 2024 2:28p m Chief Complaint Admit Date 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 July 212024 2:28pm knee popping October 10, 2024 3:48 pm Reason for Visit Admit Date Prediabetes August 04, 2024 2:28p m Hoffa's fat pad disease October 10, 2024 3:48pm Additional Source Comments INFORMATION SOURCE (unrecogn ized section and content) DATE CREATED AUTHOR 09/16/2017 [facility] DATE CREATED AUTHOR AUTHOR'S ORGANIZ ATION 02/28/2018 [facility] DATE CREATED AUTHOR AUTHOR'S ORGANIZ ATION 02/28/2018 [facility] DATE CREATED AUTHOR AUTHOR'S ORGANIZ ATION 05/23/2024 [facility] DATE CREATED AUTHOR AUTHOR'S ORGANIZ ATION 05/24/2024 [facility] DATE CREATED AUTHOR AUTHOR'S ORGANIZ ATION 08/01/2024 [facility] EPIC DATE CREATED AUTHOR AUTHOR'S ORGANIZ ATION 10/03/2024 [facility] DATE CREATED AUTHOR AUTHOR'S ORGANIZ ATION 11/24/2024 [facility] Care Teams (unrecognized sec tion and content) Team Status: Inactive Member Role Status Dates Chelly Garcia MD Primary Care Provider Active Faisal Barry MD Attending Provider Active Team Status: Active Member Role Status Dates Chelly Garcia MD Primary Care Provider Active Team Status: Active Member Role Status Dates Rashi Asher DO Primary Care Provider Active Team Status: Inactive Member Role Status Dates Rashi Asher DO Primary Care Provi verito, Attending Provider Active Start: July 01, 2023 End: July 01, 2023 Team Status: Inactive Member Role Status Dates Rashi Asher DO Primary Care Provi verito, Attending Provider Active Start: September 17, 2023 End: September 17, 2023 Team Status: Inactive Member Role Status Dates Rashi Asher DO Primary Care Provi verito, Attending Provider Active Start: April 21, 2024 End: April 21, 2024 Team Status: Active Member Role Status Dates Rashi Asher , DO Primary Care Provi verito, Attending Provider Active Start: May 06, 2024 Team Status: Inactive Member Role Status Dates Rashi Asher , DO Primary Care Provi verito, Attending Provider Active Start: May 20, 2024 End: May 20, 2024 Team Status: Active Member Role Status Dates Rashi Asher , DO Primary Care Provi verito, Attending Provider Active Start: May 23, 2024 Team Status: Inactive Member Role Status Dates Rashi Asher , DO Primary Care Provider Active Start: June 03, 2024 End: June 03, 2024 Tate Jordan APRN Attending Provider Active Start: June 03, 2024 End: June 03, 2024 Team Status: Active Member Role Status Dates Rashi Asher , DO Primary Care Provi verito, Attending Provider Active Start: June 23, 2024 Team Status: Inactive Member Role Status Dates Rashi Asher , DO Primary Care Provi verito, Attending Provider Active Start: June 27, 2024 End: June 27, 2024 [employer] Relationship Specialty Start Date End Date Chelly Garcia, DO PCP - General Family Medicine 07/29/22 [employer] Relationship Specialty Start Date End Date Chelly Garcia, DO PCP - General Family Medicine 07/29/22 [employer] Relationship Specialty Start Date End Date Chelly Garcia, DO PCP - General Family Medicine 07/29/22 Team Status: Active Member Role Status Dates Rashi Asher , DO Primary Care Provi verito, Attending Provider Active Start: June 30, 2024 Team Status: Inactive Member Role Status Dates Rashi Asher , DO Primary Care Provi verito, Attending Provider Active Start: August 04, 2024 End: August 04, 2024 Team Status: Inactive Member Role Status Dates Rashi Asher , DO Primary Care Provider Active Start: August 04, 2024 End: August 04, 2024 Rashi Asher , DO Attending Provider Active Start: August 04, 2024 End: August 04, 2024 Team Status: Inactive Member Role Status Dates Rashi Asher , DO Primary Care Provider Active Start: October 10, 2024 End: October 10, 2024 Rashi Asher DO Attending Provider Active Start: October 10, 2024 End: October 10, 2024 [employer] Relationship Specialty Start Date End Date Chelly Garcia PCP - General Family Medicine 07/29/22 Goals (unrecognized section and content) Goals may be documented in a n alternate sectionNo InformationNo InformationNo InformationNo InformationNo InformationNo InformationNo InformationGoals may be documented in an alternate sectionGoals may be documented in an alternate sectionGoals may be documented in an alternate sectionGoals may be documented in an alternate sectionGoals may be documented in an alternate sectionGoals may be documented in an alternate sectionGoals may be documented in an alternate sectionGoals may be documented in an alternate sectionGoals may be documented in an alternate section REASON FOR VISIT (unrecogniz ed section and content) Reason Comments Weight Management Reason Comments Well Women Visit FOR RECORDS PERTAINING TO PATIENTS WHO ARE OR HAVE BEEN ENROLLED IN A CHEMICAL DEPENDENCY/SUBSTANCEABUSE PROGRAM, SOME INFORMATION MAY BE OMITTED. This clinical summary was aggregated from multiple sources. Caution should be exercised in using it in the provision of clinical care. This summary normalizes information from multiple sources, and as a consequence, information in this document may materially change the coding, format and clinical context of patient data. In addition, data may be omitted in some cases. CLINICAL DECISIONS SHOULD BE BASED ON THE PRIMARY CLINICAL RECORDS. [facility]. provides no warranty or guarantee of the accuracy or completeness of information in this document.
[2024-12-13 21:09] LABS: Age Gdln ACOG Testing Note (.); HPV Genotype 18,45 Negative (Negative); IGP, Aptima HPV, rfx 16/18,45 Note (.)
== END 2024-12-06 20:09 | disposition home or self-care (01) ==
LOC: LAB 20:08
PROVIDERS: Visit Provider Obstetrics & Gynecology
DX: Z01.419 Encounter for gynecological examination (general) (routine) without abnormal findings (principal)
CPT/HCPCS: 87624; 88175